=== PATIENT | female | born 1970 | race Caucasian/White ===

== ENCOUNTER 2020-11-09 05:47 | Day surgery (SDC) | payer BC, SELFPAY ==
[2020-10-19 16:03] VITALS: BMI 49.2
--- NOTE | 2020-11-08 15:26 | SUR.PREOP ---
Pt was tested for COVID-[address] [facility] in [facility] on 11/03. Pt presented to hospital today and showed this RN a negative COVID result on her phone. Pt did not have access to a printer to print out result. Pt was emailed her result via an encrypted manner which was shown to this RN. Pt did attempt to forward email to this RN's [facility] email however I was unable to open the email to print the negative result. This RN has called the [facility] in [facility] where pt obtained test and was informed by [employer] sales representative at [facility] that their tests are completed by a third democrat and they do not have access to test results therefore would not be able to send results to the hospital.
[2020-11-09] VITALS (8 sets, daily range): BP systolic 025–125; BP diastolic 67–98; PULSE 69–95; RESP 16; TEMP 36.3–36.8; O2SAT 100; BMI 50.0
--- NOTE | 2020-11-09 06:18 | PCM.HP.STD ---
Problem List (1) Screening for intestinal cancer Status: Acute History of Present Illness Date of Admission: 11/09/20 The patient is a 50 year old F who presents for screening colonoscopy today. She presents via open access. She has never had a previous colonoscopy. She denies abdominal pain. No bright red blood per rectum or melena. No unexpected weight loss. No family history of colon cancer. Her previous abdominal surgery included a laparoscopic cholecystectomy Past Medical History Past Medical History (Chronic Problems): Chronic Problems (Last Reviewed 10/19/20 @ 16:[address] Kalin Paredes, DO) Obesity (Chronic) Overactive bladder (Chronic) Chronic shoulder pain (Chronic) GERD (gastroesophageal reflux disease) (Chronic) ADHD (Chronic) Anxiety and depression (Chronic) Medical History: Medical History (Last Reviewed 10/19/20 @ 16:[address] Kalin Paredes, DO) Obesity (Chronic) E66.9 Overactive bladder (Chronic) N32.81 Chronic shoulder pain (Chronic) M25.519, G89.29 GERD (gastroesophageal reflux disease) (Chronic) K21.9 ADHD (Chronic) F90.9 Gallstones (Acute) K80.20 Anxiety and depression (Chronic) F41.9, F32.9 Allergies trazodone Allergy (Severe, Verified 11/03/20 11:32) rash Contrast dye Allergy (Severe, Uncoded 11/03/20 11:32) Rash Home Medications: Ambulatory Orders Medication Instructions Recorded duloxetine 30 mg capsule,delayed 30 mg PO QHS 07/09/20 release duloxetine 60 mg capsule,delayed 60 mg PO QHS 07/09/20 release meloxicam 7.5 mg tablet 7.5 mg PO DAILY 07/09/20 omeprazole 20 mg capsule,delayed 20 mg PO DAILY 07/09/20 release oxybutynin chloride 5 mg tablet 5 mg PO BID 07/09/20 quetiapine 100 mg tablet 100 mg PO BID 07/09/20 dextroamphetamine-amphetamine ER 30 mg PO DAILY #30 cap 10/19/20 30 mg 24hr capsule,extend release Surgical History: Surgical History (Last Reviewed 10/19/20 @ 16:[address] Kalin Paredes, DO) History of bladder repair surgery Z98.890 History of cholecystectomy Z90.49 History of mandibular surgery Z98.890 1991 Smoking Status: Never smoker Review of Systems Constitutional: Denies: Chills, Fever Cardiovascular: Denies: Chest Pain Respiratory: Denies: Shortness of Breath Gastrointestinal: Denies: Abdominal Pain, Hematochezia, Melena Endocrine: Denies: Change in Body Habitus VTE Information - Inpt Only VTE Present on Admission: No - Physical Exam Vitals/I&O's: Body Mass Index (BMI) 49.2 General: Alert, Oriented x3, Cooperative, No apparent distress Oral: Moist Mucosa Neck: Supple Lungs: Clear to auscultation, Normal air movement Cardiovascular: Regular rate, Regular Rhythm Abdomen: Soft, Non Tender Extremities: No Calf Tenderness Psych/Mental Status: Normal Affect Assessment/Plan All Active Problems (Last Reviewed 10/19/20 @ 16:[address] Kalin Paredes, DO) Screening for intestinal cancer (Acute) Gallstones (Acute) I recommended the patient a colonoscopy with possible biopsy or polypectomy is indicated. She presents with her mother today. She is aware of the technique, benefit, risk, alternatives. She has had an opportunity to ask and have questions answered. She presents via open access. She states that she has tolerated a bowel prep well. We will proceed as noted. Derick Cooper M.D., F.A.C.S.
[2020-11-09] MEDS: Lactated Ringers 1,000 ML 100 ML IV (06:27)
--- NOTE | 2020-11-09 07:38 | OP.COLON_ITS ---
Patient Name: Alexandria Motta Procedure Date: 11/09/2020 7:05 AM Date of : 1970 Age: 50 Procedure: Colonoscopy Indications: Screening for colorectal malignant neoplasm Providers: Derick Cooper MD Referring MD: Kalin Paredes Medicines: Midazolam 5 mg IV, Meperidine 150 mg IV Patient Profile: Last Colonoscopy: none. The patient's first colonoscopy is today. Complications: No immediate complications. Procedure: Pre-Anesthesia Assessment: - Prior to the procedure, a History and Physical was performed, and patient medications and allergies were reviewed. The patient's tolerance of previous anesthesia was also reviewed. The risks and benefits of the procedure and the sedation options and risks were discussed with the patient. All questions were answered, and informed consent was obtained. Prior Anticoagulants: The patient has taken no previous anticoagulant or antiplatelet agents. ASA Grade Assessment: II - A patient with mild systemic disease. After reviewing the risks and benefits, the patient was deemed in satisfactory condition to undergo the procedure. After I obtained informed consent, the scope was passed under direct vision. Throughout the procedure, the patient's blood pressure, pulse, and oxygen saturations were monitored continuously. The colonoscope was introduced through the anus and advanced to the cecum, identified by appendiceal orifice and ileocecal valve. The colonoscopy was performed without difficulty. The ileocecal valve and the appendiceal orifice were photographed. Moderate Sedation: Moderate (conscious) sedation was administered by the endoscopy nurse and supervised by the endoscopist. The following parameters were monitored: oxygen saturation, heart rate, blood pressure, and response to care. Total physician intraservice time was 20 minutes. Scope In: 7:15:35 AM Scope Withdrawal Time 0 hours 6 minutes 42 seconds Scope Out: 7:32:50 AM Total Procedure Duration Time 0 hours 17 minutes 15 seconds Findings: Hemorrhoids were found on perianal exam. The colon (entire examined portion) was significantly tortuous. The exam was otherwise without abnormality. Impression: - Hemorrhoids found on perianal exam. - Tortuous colon. - The examination was otherwise normal. - No specimens collected. Recommendation: - Discharge patient to home. - Resume previous diet. - Continue present medications. - Repeat colonoscopy in 10 years for screening purposes. Procedure Code(s): --- Professional --- 15821, Colonoscopy, flexible; diagnostic, including collection of specimen(s) by brushing or washing, when performed (separate procedure) 14234, 59, Moderate sedation services provided by the same physician or other qualified health customer care manager performing the diagnostic or therapeutic service that the sedation supports, requiring the presence of an independent trained observer to assist in the monitoring of the patient's level of consciousness and physiological status; initial 15 minutes of intraservice time, patient age 5 years or older Diagnosis Code(s): --- Professional --- Z12.11, Encounter for screening for malignant neoplasm of colon K64.9, Unspecified hemorrhoids Q43.8, Other specified congenital malformations of intestine CPT copyright 2017 [employer]. All rights reserved. The codes documented in this report are preliminary and upon last trimmer review may be revised to meet current compliance requirements. Derick Cooper MD 11/09/2020 7:37:37 AM This report has been signed electronically. Number of Addenda: 0 Note Initiated On: 11/09/2020 7:05 AM
--- NOTE | 2020-11-09 07:38 | OP.CCLET_ITS ---
11/09/2020 Kalin Paredes Re : Colonoscopy procedure for Alexandria Motta Dear Dr. Paredes This procedure was performed on Monday, November 09, 2020. My impressions and recommendations are as follows: Impressions : - Hemorrhoids found on perianal exam. - Tortuous colon. - The examination was otherwise normal. - No specimens collected. Recommendations : - Discharge patient to home. - Resume previous diet. - Continue present medications. - Repeat colonoscopy in 10 years for screening purposes. My findings are described in the full procedure note, which is enclosed. If I can be of further assistance, please feel free to contact me at Doctor phone number(s): Work: . Sincerely, Derick Cooper MD 11/09/2020 7:37:37 AM This report has been signed electronically.
== END 2020-11-09 08:10 | disposition home or self-care (01) ==
LOC: EN 05:48 → AC 05:50
PROVIDERS: PCP Family Medicine; Referring Provider Family Medicine; Visit Provider Surgery
PROC: 0DJD8ZZ Inspection of Lower Intestinal Tract, Via Natural or Artificial Opening Endoscopic (ICD-10-PCS; CPT 45378; principal; 2020-11-09 06:55)
DX: Z12.11 Encounter for screening for malignant neoplasm of colon (principal); E66.9 Obesity, unspecified; K21.9 Gastro-esophageal reflux disease without esophagitis; N32.81 Overactive bladder; G89.29 Other chronic pain; F32.9 Major depressive disorder, single episode, unspecified; F41.9 Anxiety disorder, unspecified; F90.9 Attention-deficit hyperactivity disorder, unspecified type; Z79.899 Other long term (current) drug therapy; Z68.42 Body mass index [BMI] 45.0-49.9, adult; K64.9 Unspecified hemorrhoids; Q43.8 Other specified congenital malformations of intestine
CPT/HCPCS: 45378; 99152; 99153; J7120

== ENCOUNTER → 2021-07-28 09:26 | Outpatient (CLI) | payer BC, SELFPAY ==
[2021-07-28 12:27] LABS: Absolute Lymphocyte Count 1.38 X10^3/uL (0.83-4.51); Absolute Neutrophil Count 2.7 X10^3/uL (2.0-7.7); Basophil# 0.04 X10^3/uL; Basophil% 0.9 % (0-1); Eosinophil# 0.12 X10^3/uL; Eosinophils% 2.6 % (0-5); Hematocrit 38.5 % (37-47); Lymphocyte # 1.38 X10^3/ul (0.83-4.51); Mean Corp Hgb Conc 33.8 g/dL (32-36); Mean Corpuscular Hgb 30.7 pg (27.0-32.0); Mean Platelet Vol. 11.6 fl (6.2-12.0); Monocyte# 0.37 X10^3/uL; NRBC Flagged by Analyzer 0 % (0-5); Neutrophil # 2.69 X10^3/uL (2.7-7.7); Neutrophil % 58.5 % (47-70); Platelet Count 271 K/mm3 (150-450); RBC Distribution Width CV 14.4 % (11.6-14.6); RBC Distribution Width SD 48.2 fl (35.1-43.9); Red Blood Count 4.23 M/mm3 (4.2-5.4); White Blood Count 4.6 K/mm3 (4.4-11.0)
[2021-07-28 12:49] LABS: ALB/GLOB Ratio 0.8 RATIO (0.9-2.4); AST(SGOT) 23 U/L (15-37); Alanine Aminotransfer ALT/SGPT 25 U/L (13-56); Albumin, Serum 3.4 g/dL (3.2-5.0); Alkaline Phosphatase 83 U/L (45-117); Anion Gap 7 (5-15); BUN 13 mg/dL (7-18); BUN/Creat Ratio 21.4 RATIO (10-20); Calcium,Total 9.1 mg/dL (8.5-10.1); Chloride 108 mmol/L (98-107); Creatinine, Serum 0.61 mg/dL (0.55-1.02); EST Glomerular Filtration Rate 110 mL/min (>60); Est Glom Filt Rate - Afr Amer 133 mL/min (>60); Globulin 4.1 g/dL (2.2-4.2); Glucose 95 mg/dL (74-106); Potassium 4.6 mmol/L (3.5-5.1); Protein, Total 7.5 g/dL (6.4-8.2); Sodium Level 140 mmol/L (136-145)
== END ==
PROVIDERS: PCP Family Medicine; Referring Provider Family Medicine; Visit Provider Family Medicine
DX: R53.83 Other fatigue (principal); F90.8 Attention-deficit hyperactivity disorder, other type; E66.9 Obesity, unspecified
CPT/HCPCS: 36415; 80053; 84443; 85025

== ENCOUNTER → 2022-10-18 | Outpatient (CLI) | payer BC, SELFPAY ==
[2022-10-18 12:43] LABS: ALB/GLOB Ratio 1.1 RATIO (0.9-2.4); AST(SGOT) 15 U/L (15-37); Alanine Aminotransfer ALT/SGPT 19 U/L (13-56); Albumin, Serum 3.7 g/dL (3.2-5.0); Alkaline Phosphatase 70 U/L (45-117); Anion Gap 6 (5-15); BUN 13 mg/dL (7-18); BUN/Creat Ratio 19.2 RATIO (10-20); Calcium,Total 9.1 mg/dL (8.5-10.1); Chloride 108 mmol/L (98-107); Creatinine, Serum 0.68 mg/dL (0.55-1.02); EST Glomerular Filtration Rate 97 mL/min (>60); Est Glom Filt Rate - Afr Amer 117 mL/min (>60); Globulin 3.4 g/dL (2.2-4.2); Glucose 98 mg/dL (74-106); Protein, Total 7.1 g/dL (6.4-8.2); Sodium Level 141 mmol/L (136-145)
[2022-10-19 19:39] LABS: LDL, Direct 120295 134 mg/dL (0-99)
== END | disposition home or self-care (01) ==
LOC: BIMLAB 09:25
PROVIDERS: PCP Family Medicine; Referring Provider Family Medicine; Visit Provider Family Medicine
DX: Z00.00 Encounter for general adult medical examination without abnormal findings (principal); F90.8 Attention-deficit hyperactivity disorder, other type; E66.9 Obesity, unspecified
CPT/HCPCS: 36415; 80053; 83721; 84443

== ENCOUNTER → 2023-05-30 | Outpatient (CLI) | payer BC, SELFPAY ==
--- NOTE | 2023-05-30 16:27 | CT_ITS ---
EXAM: CT HEAD WITHOUT INTRAVENOUS CONTRAST CLINICAL INDICATION: optic nerve SWELLING TECHNIQUE: Multiple axial images were obtained of the head without intravenous contrast. This CT exam was performed using one or more of the following dose reduction techniques: automated exposure control, adjustment of the mA and/or kV according to patient size, and/or use of iterative reconstruction technique. COMPARISON: No relevant prior studies available. FINDINGS: BRAIN AND EXTRA-AXIAL SPACES: No significant abnormality. No intra- or extra-axial hemorrhage. No evidence of acute infarct. No intracranial mass or mass effect. There is preservation of the modi/white matter interface. Ventricles are appropriate for age. Basal cisterns are patent. BONES/JOINTS: Bilateral TMJ arthrosis. No discrete lytic or blastic abnormalities. SINUSES: No significant findings. MASTOID AIR CELLS: No significant effusion. ORBITS: No acute findings. SELLA: Partially empty sella turcica. CT/Brain/Head without Contrast IMPRESSION: Partially empty sella turcica. This may be a subtle sign of elevated intracranial pressure. Recommend MRI of the brain and orbits for further evaluation. No additional acute findings. Electronically Signed: Gilberto Antoine DO at 22:19 EDT ,
== END | disposition home or self-care (01) ==
PROVIDERS: PCP Family Medicine; Visit Provider Internal Medicine Critical Care Medicine
DX: H47.099 Other disorders of optic nerve, not elsewhere classified, unspecified eye (principal)
CPT/HCPCS: 70450

== ENCOUNTER → 2023-10-24 | Outpatient (CLI) | payer BC, SELFPAY ==
[2023-10-24 17:00] LABS: Absolute Lymphocyte Count 2.44 X10^3/uL (0.83-4.51); Absolute Neutrophil Count 3.4 X10^3/uL (2.0-7.7); Basophil# 0.04 X10^3/uL; Basophil% 0.6 % (0-1); Eosinophil# 0.11 X10^3/uL; Eosinophils% 1.7 % (0-5); Hematocrit 38.7 % (37-47); Hemoglobin 12.6 g/dL (12.0-15.0); Lymphocyte # 2.44 X10^3/ul (0.83-4.51); Lymphocyte % 38.3 % (19-41); Mean Corp Hgb Conc 32.6 g/dL (32-36); Mean Corpuscular Hgb 30.2 pg (27.0-32.0); Mean Corpuscular Volume 92.8 fL (81-99); Monocyte# 0.38 X10^3/uL; NRBC Flagged by Analyzer 0 % (0-5); Neutrophil # 3.39 X10^3/uL (2.7-7.7); Neutrophil % 53.2 % (47-70); Platelet Count 281 K/mm3 (150-450); RBC Distribution Width CV 13.2 % (11.6-14.6); RBC Distribution Width SD 45.3 fl (35.1-43.9); Red Blood Count 4.17 M/mm3 (4.2-5.4); White Blood Count 6.4 K/mm3 (4.4-11.0)
[2023-10-24 17:24] LABS: ALB/GLOB Ratio 1.1 RATIO (0.9-2.4); AST(SGOT) 13 U/L (15-37); Alanine Aminotransfer ALT/SGPT 26 U/L (13-56); Albumin, Serum 3.8 g/dL (3.2-5.0); Alkaline Phosphatase 70 U/L (45-117); Anion Gap 3 (5-15); BUN 19 mg/dL (7-18); BUN/Creat Ratio 34.1 RATIO (10-20); Calcium,Total 8.9 mg/dL (8.5-10.1); Chloride 109 mmol/L (98-107); Creatinine, Serum 0.56 mg/dL (0.55-1.02); EST Glomerular Filtration Rate 121 mL/min (>60); Est Glom Filt Rate - Afr Amer 146 mL/min (>60); Globulin 3.5 g/dL (2.2-4.2); Glucose 84 mg/dL (74-106); Potassium 3.7 mmol/L (3.5-5.1); Protein, Total 7.3 g/dL (6.4-8.2); Sodium Level 139 mmol/L (136-145); Thyroid Stim Hormone (TSH) 2.47 uIU/mL (0.358-3.74)
== END | disposition home or self-care (01) ==
LOC: BIMLAB 15:55
PROVIDERS: PCP Family Medicine; Visit Provider Family Medicine
DX: F41.9 Anxiety disorder, unspecified (principal); F32.9 Major depressive disorder, single episode, unspecified; F90.8 Attention-deficit hyperactivity disorder, other type; R53.83 Other fatigue
CPT/HCPCS: 36415; 80053; 84443; 85025

== ENCOUNTER → 2025-02-17 | Outpatient (CLI) | payer BC, SELFPAY ==
[2025-02-17 12:53] LABS: ALB/GLOB Ratio 1.4 RATIO (0.9-2.4); AST(SGOT) 20 U/L (<=31); Alanine Aminotransfer ALT/SGPT 13 U/L (<=34); Alkaline Phosphatase 79 U/L (35-104); Anion Gap 9 (5-15); BUN 16 mg/dL (4-19); BUN/Creat Ratio 26.4 RATIO (10-20); Calcium,Total 9.3 mg/dL (7.6-11.0); Carbon Dioxide 25.1 mmol/L (21.0-32.0); Chloride 107 mmol/L (98-108); Cholesterol 211 mg/dL (<=200); EST Glomerular Filtration Rate 106 (>60); Globulin 2.8 g/dL (2.2-4.2); Glucose 107 mg/dL (70-99); High Density Lipoprotein 56 mg/dL; Low Density Lipoprotein Calc. 131 mg/dL; Potassium 4.5 mmol/L (3.3-5.1); Protein, Total 6.8 g/dL (5.9-8.4); Sodium Level 141 mmol/L (133-145); Total Bilirubin 0.23 mg/dL (0.00-1.30); Triglycerides 124 mg/dL; Very Low Density Lipoprotein 25 mg/dL (5-40); cholesterol:hdl ratio screen 3.79
--- OUTSIDE RECORDS SUMMARY | 2025-02-17 22:29 | XMS RPT_ITS | CCD ---
Author Organization [facility] CliniSyar Care Team Providers Care Cash Grain Farmer Name Role Phone Rosaura BustosJorge Unavailable Unavailable Gina Paredes Unavailable Unavailable Dr. Gina Paredes Primary Care Provider [phone] Dr. Gina Paredes Attending Provider [phone] Gina Paredes Referring Provider Dr. Gina Paredes Primary Care Provider Dr. Gina Paredes Attending Provider [phone] Gina Paredes Referring Provider [phone] Gina Paredes Primary Care Provider [phone] Dr. Gina Paredes Attending Provider [phone] Gina Paredes Referring Provider [phone] Gina Paredes DO Primary Care Provider SELF Referring Unavailable BROWN, GINA R Primary Care Unavailable BDUDY DOWNS Attending Unavailable Brown, Gina R Primary Care Unavailable Brown, Gina R Attending Unavailable Brown, Gina R Referring Unavailable Brown, Gina R Primary Care Unavailable Brown, Gina R Attending Unavailable Brown, Gina R Referring Unavailable Brown, Gina R Primary Care Unavailable Brown, Gina R Attending Unavailable Brown, Gina R Referring Unavailable Brown, Gina R Primary Care Unavailable Jerome Sanchez Attending Unavailable Brown, Gina R Referring Unavailable Brown, Gina R Primary Care Unavailable Brown, Gina R Attending Unavailable Brown, Gina R Referring Unavailable Brown, Gina R Primary Care Unavailable Reyna Michel Attending Unava ilable Reyna Michel Attending Unava ilable Reggie, Gina R Primary Care Unavailable Dr. Gina Paredes DO Primary Care Provider Dr. Gina Paredes DO Attending Provider Dr. Gina Paredes DO Referring Provider Reyna Michel MA Attending Provider Unavailable Allergies Allergy Classification Reported Allergen(s) Allergy Type Date of Onset Reaction(s) Facility (1 source) Contrast media Allergy to substance 3 [facility] (6 sources) traZODone; Translations: [TRAZODONE] Drug Allergy 3 [facility] (3 sources) Triiodobenzoic Acids Allergy to substance 3 [facility] (2 sources) Iodine; Translations: [IODINE] Drug Allergy 5 [facility] (1 source) traZODone Drug Allergy 5 [facility] (1 source) Iodinated Contrast Media Drug allergy (disorder) 5 [facility] Medications Current Medications Medication Drug Class(es) Dates Sig (Normalized) Sig (Original) doxycycline monohydrate 100 mg oral capsule (1 source) Tetracycline-class Drug Start: 11-16-2024 End: 11-26-2024 take 1 capsule by mouth twice daily doxycycline monohydrate (MONODOX) 100 mg capsule Indications: Atypical pneumonia Take 1 capsule by mouth two times a day for 10 days. 20 capsule 11/16/2024 11/26/2024 Active QUEtiapine 100 mg oral tablet (20 sources) Atypical Antipsychotic Start: 01-13-2025 take 1 tablet by mouth twice daily in the morning, then take 2 tablets by mouth once daily at bedtime Quetiapine 100 mg tablet Active 0 PO TWICE A DAY 270 January 13, 2025 12:16pm 1 tab PO in AM and 2 tabs PO QHS Start: 11-11-2024 End: 01-13-2025 take 1 tablet by mouth twice daily Quetiapine 200 mg tablet Discontinued 0 PO TWICE A DAY 180 November 11, 2024 5:36pm January 13, 2025 1:32pm One tablet twice a day Start: 11-11-2024 take 1 tablet by vicente th every twelve hours QUEtiapine (SEROQUEL) 200 mg tablet Take 1 tablet by mouth every 12 hours. 11/11/2024 Active Start: 07-09-2020 End: 11-11-2024 take 1 tablet by mouth twice daily in the morning, then take 2 tablets by mouth once daily at bedtime Quetiapine 100 mg tablet Discontinued 0 PO TWICE A DAY September 24, 2024 9:36am November 11, 2024 5:38pm 1 tab PO in AM and 2 tabs PO QHS rimegepant 75 mg disintegrating oral tablet (2 sources) Start: 04-30-2024 End: 06-05-2024 take 1 tablet by mouth once daily as needed for headache Rimegepant (Nurtec Odt) 75 mg tablet,disintegrating Active 75 mg PO .QD as needed for migraine headache June 05, 2024 1:54pm Completed/Discontinued Medications Medication Drug Class(es) Dates Sig (Normalized) Sig (Original) 24 hr amphetamine aspartate 7.5 mg / amphetamine sulfate 7.5 mg / dextroamphetamine saccharate 7.5 mg / dextroamphetamine sulfate 7.5 mg extended release oral capsule (20 sources) Central Nervous System Stimulant Start: 01-27-2025 End: 01-27-2025 take 1 capsule by mouth once daily, then take 1 capsule by mouth every twenty-four hours Dextroamphetamine- Amphetamine (Adderall Xr) 30 mg capsule,extended release 24hr Discontinued 30 mg PO DAILY January 27, 2025 February 25, 2025 12:00am January 27, 2025 10:00am Start: 12-30-2024 End: 01-27-2025 take 1 capsule by mouth once daily, then take 1 capsule by mouth every twenty-four hours Dextroamphetamine-Amphetamine (Adderall Xr) 30 mg capsule,extended release 24hr Active 30 mg PO DAILY January 27, 2025 February 25, 2025 12:00am Start: 10-28-2024 End: 12-25-2024 take 1 capsule by mouth once daily, then take 1 capsule by mouth every twenty-four hours Dextroamphetamine-Amphetamine (Adderall Xr) 30 mg capsule,extended release 24hr Discontinued 30 mg PO DAILY November 25, 2024 December 24, 2024 12:00am December 25, 2024 12:07am Start: 09-24-2024 End: 10-24-2024 Dextroamphetamine-Amphetamin e 30 mg capsule,extended release 24hr Discontinued 1 NMA PO daily September 24, 2024 October 23, 2024 1:00am October 24, 2024 1:11am Start: 08-19-2024 End: 09-18-2024 take 1 capsule by mouth once daily, then take 1 capsule by mouth every twenty-four hours Dextroamphetamine-Amphetamine (Adderall Xr) 30 mg capsule,extended release 24hr Discontinued 30 mg PO DAILY August 19, 2024 September 17, 2024 1:00am September 18, 2024 1:11am Start: 07-22-2024 End: 07-22-2024 take 1 capsule by mouth once daily, then take 1 capsule by mouth every twenty-four hours Dextroamphetamine-Amphetamine (Adderall Xr) 30 mg capsule,extended release 24hr Discontinued 30 mg PO DAILY July 22, 2024 August 20, 2024 1:00am July 22, 2024 12:02pm Start: 07-22-2024 End: 08-19-2024 take 1 capsule by mouth once daily, then take 1 capsule by mouth every twenty-four hours Dextroamphetamine-Amphetamine (Adderall Xr) 30 mg capsule,extended release 24hr Discontinued 30 mg PO DAILY July 22, 2024 August 20, 2024 1:00am August 19, 2024 1:34pm Start: 06-16-2024 End: 07-16-2024 take 1 capsule by mouth once daily, then take 1 capsule by mouth every twenty-four hours Dextroamphetamine-Amphetamine (Adderall Xr) 30 mg capsule,extended release 24hr Discontinued 30 mg PO DAILY June 16, 2024 July 15, 2024 1:00am July 16, 2024 1:08am Start: 03-11-2024 End: 06-06-2024 take 1 capsule by mouth once daily, then take 1 capsule by mouth every twenty-four hours Dextroamphetamine-Amphetamine (Adderall Xr) 30 mg capsule,extended release 24hr Discontinued 30 mg PO DAILY May 07, 2024 June 05, 2024 12:00am June 06, 2024 12:07am Start: 10-09-2023 End: 03-06-2024 take 1 capsule by mouth once daily, then take 1 capsule by mouth every twenty-four hours Dextroamphetamine-Amphetamine (Adderall Xr) 30 mg capsule,extended release 24hr Discontinued 30 mg PO DAILY 30 February 05, 2024 March 05, 2024 12:00am March 06, 2024 12:04am Start: 09-04-2023 End: 10-04-2023 take 1 capsule by mouth once daily, then take 1 capsule by mouth every twenty-four hours Dextroamphetamine-Amphetamine (Adderall Xr) 30 mg capsule,extended release 24hr Discontinued 30 mg PO DAILY September 04, 2023 October 03, 2023 1:00am October 04, 2023 1:05am Start: 05-30-2023 End: 08-24-2023 take 1 capsule by mouth once daily, then take 1 capsule by mouth every twenty-four hours Dextroamphetamine-Amphetamine (Adderall Xr) 30 mg capsule,extended release 24hr Discontinued 30 mg PO DAILY June 27, 2023 July 26, 2023 1:00am July 25, 2023 5:21pm Start: 03-26-2023 End: 05-27-2023 take 1 capsule by mouth once daily, then take 1 capsule by mouth every twenty-four hours Dextroamphetamine-Amphetamine (Adderall Xr) 30 mg capsule,extended release 24hr Discontinued 30 mg PO DAILY April 27, 2023 May 26, 2023 12:00am May 27, 2023 12:04am Start: 01-24-2023 End: 03-25-2023 take 1 capsule by mouth once daily, then take 1 capsule by mouth every twenty-four hours Dextroamphetamine-Amphetamine (Adderall Xr) 30 mg capsule,extended release 24hr Discontinued 30 mg PO DAILY 30 February 23, 2023 March 24, 2023 12:00am March 25, 2023 12:04am Start: 11-21-2022 End: 01-20-2023 take 1 capsule by mouth once daily, then take 1 capsule by mouth every twenty-four hours Dextroamphetamine-Amphetamine (Adderall Xr) 30 mg capsule,extended release 24hr Discontinued 30 mg PO DAILY 30 December 21, 2022 January 19, 2023 12:00am January 20, 2023 12:13am Start: 09-19-2022 End: 10-19-2022 take 1 capsule by mouth twice daily, then take 1 capsule by mouth every twenty-four hours Dextroamphetamine-Amphetamine (Adderall Xr) 15 mg capsule,extended release 24hr Discontinued 15 mg PO TWICE A DAY 60 September 19, 2022 October 18, 2022 1:00am October 19, 2022 1:05am Start: 06-26-2022 End: 09-21-2022 take 1 capsule by mouth once daily, then take 1 capsule by mouth every twenty-four hours Dextroamphetamine-Amphetamine (Adderall Xr) 30 mg capsule,extended release 24hr Discontinued 30 mg PO DAILY 30 August 22, 2022 September 20, 2022 1:00am September 21, 2022 1:05am On Hold: Unavailable Start: 05-18-2022 End: 06-17-2022 take 1 capsule by mouth once daily, then take 1 capsule by mouth every twenty-four hours Dextroamphetamine-Amphetamine (Adderall Xr) 30 mg capsule,extended release 24hr Discontinued 30 mg PO DAILY 30 May 18, 2022 June 16, 2022 12:00am June 17, 2022 12:08am Start: 04-17-2022 End: 05-17-2022 take 1 capsule by mouth once daily, then take 1 capsule by mouth every twenty-four hours Dextroamphetamine-Amphetamine (Adderall Xr) 30 mg capsule,extended release 24hr Discontinued 30 mg PO DAILY 30 April 17, 2022 May 16, 2022 12:00am May 17, 2022 12:03am Start: 03-10-2022 End: 04-13-2022 take 1 capsule by mouth once daily, then take 1 capsule by mouth every twenty-four hours Dextroamphetamine-Amphetamine (Adderall Xr) 30 mg capsule,extended release 24hr Discontinued 30 mg PO DAILY 30 March 14, 2022 April 12, 2022 12:00am April 13, 2022 12:04am Start: 01-04-2022 End: 02-24-2022 take 1 capsule by mouth once daily, then take 1 capsule by mouth every twenty-four hours Dextroamphetamine-Amphetamine (Adderall Xr) 30 mg capsule,extended release 24hr Discontinued 30 mg PO DAILY 30 January 25, 2022 February 23, 2022 12:00am February 24, 2022 12:04am Start: 11-30-2021 End: 12-30-2021 take 1 capsule by mouth once daily, then take 1 capsule by mouth every twenty-four hours Dextroamphetamine-Amphetamine (Adderall Xr) 30 mg capsule,extended release 24hr Discontinued 30 mg PO DAILY November 30, 2021 December 29, 2021 12:00am December 30, 2021 12:03am Start: 09-28-2021 End: 11-25-2021 take 1 capsule by mouth once daily, then take 1 capsule by mouth every twenty-four hours Dextroamphetamine-Amphetamine (Adderall Xr) 30 mg capsule,extended release 24hr Discontinued 30 mg PO DAILY October 26, 2021 November 24, 2021 12:00am November 25, 2021 12:03am Start: 08-24-2021 End: 09-23-2021 take 1 capsule by mouth once daily, then take 1 capsule by mouth every twenty-four hours Dextroamphetamine-Amphetamine (Adderall Xr) 30 mg capsule,extended release 24hr Discontinued 30 mg PO DAILY August 24, 2021 September 22, 2021 1:00am September 23, 2021 1:01am Start: 07-19-2021 End: 08-18-2021 take 1 capsule by mouth once daily, then take 1 capsule by mouth every twenty-four hours Dextroamphetamine-Amphetamine (Adderall Xr) 30 mg capsule,extended release 24hr Discontinued 30 mg PO DAILY July 19, 2021 August 17, 2021 1:00am August 18, 2021 1:01am Start: 04-13-2021 End: 07-08-2021 take 1 capsule by mouth once daily, then take 1 capsule by mouth every twenty-four hours Dextroamphetamine-Amphetamine (Adderall Xr) 30 mg capsule,extended release 24hr Discontinued 30 mg PO DAILY June 08, 2021 July 07, 2021 12:00am July 08, 2021 12:01am Start: 03-10-2021 End: 04-09-2021 take 1 capsule by mouth once daily Dextroamphetamine-Amphetamine 30 mg capsule,extended release 24hr Discontinued 30 mg PO DAILY March 10, 2021 April 08, 2021 12:00am March 10, 2021 3:30pm Start: 07-09-2020 End: 03-03-2021 take 1 capsule by mouth once daily, then take 1 capsule by mouth every twenty-four hours Dextroamphetamine-Amphetamine (Adderall Xr) 30 mg capsule,extended release 24hr Discontinued 30 mg PO DAILY February 01, 2021 March 02, 2021 12:00am March 03, 2021 12:01am DULoxetine 60 mg delayed release oral capsule (20 sources) Serotonin and Norepinephrine Reuptake Inhibitor Start: 07-09-2020 End: 07-10-2024 take 1 capsule by mouth at bedtime Duloxetine 30 mg capsule,delayed release(DR/EC) Discontinued 30 mg PO AT BEDTIME September 13, 2021 5:39pm October 26, 2021 4:41pm Start: 07-09-2020 End: 07-10-2024 take 1 capsule by mouth at bedtime Duloxetine 60 mg capsule,delayed release(DR/EC) Discontinued 60 mg PO AT BEDTIME September 13, 2021 5:40pm October 26, 2021 4:41pm meloxicam 7.5 mg oral tablet (20 sources) Nonsteroidal Anti-inflammatory Drug Start: 07-09-2020 End: 07-03-2024 take 1 tablet by mouth once daily Meloxicam 7.5 mg tablet Discontinued 7.5 mg PO DAILY October 10, 2021 1:34pm October 26, 2021 4:41pm omeprazole 20 mg delayed release oral capsule (20 sources) Proton Pump Inhibitor Start: 07-09-2020 End: 07-10-2024 take 1 capsule by mouth once daily Omeprazole 20 mg capsule,delayed release(DR/EC) Discontinued 20 mg PO DAILY July 13, 2022 9:26am January 17, 2023 3:13pm oxybutynin chloride 5 mg oral tablet (20 sources) Cholinergic Muscarinic Antagonist Start: 07-09-2020 End: 01-23-2024 take 1 tablet by mouth twice daily Oxybutynin Chloride 5 mg tablet Discontinued 5 mg PO TWICE A DAY December 09, 2020 12:18pm October 26, 2021 4:41pm Problems Active Problems Problem Classification Problem Date Documented Da te Episodic/Chronic Anxiety disorders (8 sources) Mixed anxiety and depressive disorder; Translations: [Anxiety disorder, unspecified] Onset: 4 11-09-2020 Chronic Attention-deficit, conduct, and disruptive behavior disorders (6 sources) Adult attention deficit hyperactivity disorder ; Translations: [Attention-deficit hyperactivity disorder, other type] 01-20-2021 Chronic Attention-deficit, conduct, and disruptive behavior disorders (4 sources) Attention deficit hyperactivity disorder; Translations: [Attention-deficit hyperactivity disorder, unspecified type] 11-09-2020 Chronic Attention-deficit, conduct, and disruptive behavior disorders (6 sources) Attention-deficit hyperactivity disorder, other type; Translations: [Attention deficit disorder with hyperactivity] Onset: 4 07-19-2022 Chronic Biliary tract disease (4 sources) Gallstone; Translations: [Calculus of gallbladder without cholecystitis without obstruction] 11-09-2020 Episodic Esophageal disorders (6 sources) Gastroesophageal reflux disease; Translations: [Gastro-esophageal reflux disease without esophagitis] Onset: 4 04-20-2021 Chronic Comment on above: Pt. has reccurence o f symptoms when she stops the medications. Headache; including migraine (3 sources) Headache; Translations: [Persistent headaches] 07-25-2023 Episodic Malaise and fatigue (5 sources) Fatigue; Translations: [Other fatigue] 07-28-2021 Episodic Mood disorders (1 source) Major depressive disorder, single episode, unspecified; Translations: [Major depressive disorder, single episode, unspecified] Onset: 4 Chronic Other aftercare (4 sources) Surgical follow-up; Translations: [Encounter for removal of sutures] 07-19-2022 Episodic Other aftercare (1 source) Encounter for removal of sutures; Translations: [Encounter for removal of sutures] 07-19-2022 Episodic Other diseases of bladder and urethra (5 sources) Overactive bladder; Translations: [Overactive bladder] 11-09-2020 Chronic Other ear and sense organ disorders (4 sources) Hearing loss; Translations: [Unspecified hearing loss, unspecified ear] 10-18-2022 Chronic Other ear and sense organ disorders (1 source) Unspecified hearing loss, unspecified ear; Translations: [Unspecified hearing loss] 10-18-2022 Chronic Other eye disorders (3 sources) Compression of optic nerve; Translations: [Other disorders of optic nerve, not elsewhere classified, unspecified eye] 05-10-2023 Chronic Other eye disorders (1 source) Other disorders of optic nerve, not elsewhere classified, unspecified eye; Translations: [Other disorders of optic nerve] 05-10-2023 Chronic Other gastrointestinal disorders (2 sources) Slow transit constipation; Translations: [Slow transit constipation] 07-25-2023 Episodic Other gastrointestinal disorders (1 source) Slow transit constipation; Translations: [Slow transit constipation] 07-25-2023 Episodic Other non-traumatic joint disorders (4 sources) Shoulder pain; Translations: [Pain in unspecified shoulder] 11-09-2020 Episodic Other nutritional; endocrine; and metabolic disorders (4 sources) Obesity; Translations: [Obesity, unspecified] 10-18-2022 Chronic Other nutritional; endocrine; and metabolic disorders (1 source) Obesity, unspecified; Translations: [Obesity, unspecified] 10-18-2022 Chronic Other screening for suspected conditions (not mental disorders or infectious disease) (4 sources) Patient encounter status; Translations: [Encounter for screening for malignant neoplasm of intestinal tract, unspecified] 11-09-2020 Episodic Pneumonia (except that caused by tuberculosis or sexually transmitted disease) (2 sources) Atypical pneumonia; Translations: [Pneumonia, unspecified organism] Onset: 5 11-16-2024 Episodic Unclassified (1 source) Unknown / UNK(Unknown) Onset: 8 Past or Other Problems Problem Classification Problem Date Documented Da te Episodic/Chronic Unclassified (1 source) URGE INCONTINENCE, BATTERY AND LEAD FAILURE Onset: 10-18-2017 Results Test Name Value Interpretation Reference Range Facility [facility] 11-16-2024 CNOV Office Visit ([facility] ) KEZIA MOTTA ([id number]) 1970 F Date Time Provider Department 11/16/24 10:50 AM BUDDY DOWNS During your visit today, we recorded the following information about you: Temperature Pulse Respiration Blood pressure 97.4 degrees 110/minute 20/minute 119/79 Weight 119.7 kg Buddy Downs MD 11/16/2024 11:24 AM Signed Follow-up with PCP Increase fluid intake, rest Steam inhalation plus physiotherapy Autoinsufflation ED if worse Buddy Downs MD 11/16/2024 12:15 PM Signed [facility] Subjective Kezia Motta is a 54 year old female. Patient presents with: Eye Problem: Eyes drainage, mucus in throat both x 6 days Patient with both flu shot and COVID shot this season. Non-smoker; Also complained of ear plugging as if she is under the water. The history is provided by the patient. Eye Problem This is a new problem. The current episode started in the past 7 days. The problem has been gradually worsening. Associated symptoms include chills, coughing, a fever and a sore throat. Pertinent negatives include no nausea or neck pain. Treatments tried: Mucinex DM. The treatment provided no relief. Review of Systems Constitutional: Positive for chills and fever. HENT: Positive for sore throat. Respiratory: Positive for cough. Gastrointestinal: Negative for nausea. Musculoskeletal: Negative for neck pain. Objective BP 119/79 Pulse 110 Temp 36.3 ?C (97.4 ?F) Resp 20 Wt 119.7 kg (264 lb) SpO2 96% Physical Exam Constitutional: Appearance: Normal appearance. HENT: Head: Normocephalic and atraumatic. Nose: Nose normal. Mouth/Throat: Mouth: Mucous membranes are moist. Pharynx: No oropharyngeal exudate or posterior oropharyngeal erythema. Cardiovascular: Rate and Rhythm: Normal rate and regular rhythm. Pulmonary: Effort: Pulmonary effort is normal. Breath sounds: Rhonchi (Left upper to mid lung field) present. Neurological: Mental Status: She is alert. ASSESSMENT/PLAN: 1. Atypical pneumonia - ICD9: 486, ICD10: J18.9 Follow-up with PCP Increase fluid intake, rest Steam inhalation plus physiotherapy Auto-insufflation for eustachian tube dysfunction ED if worse - DOXYCYCLINE MONOHYDRATE 100 MG CAPSULE Buddy Downs MD Differential Diagnoses - atypical pneumonia is more likely for the following reason(s): suggested by HANDP Disposition The patient was discharged. Procedures Referring Provider: SELF [[id number]] Allergies As of Date: 11/16/2024 Noted Allergy Reaction CONTRAST DYE (IODINE) 11/16/2024 2 - Rash TRAZODONE 11/16/2024 2 - Rash Date Reviewed: 11/16/2024 Reviewed by: Buddy Downs MD - Fully Assessed Reason for Visit: Eye Problem [43] Cmt: Eyes drainage, mucus in throat both x 6 days Primary Visit Diagnosis:Atypical pneumonia [J18.9] Order(s):doxycycline monohydrate (MONODOX) 100 mg capsuleTake 1 capsule by mouth two times a day for 10 days.Disp: 20 capsuleRfl: 0 Prescriptions as of 11/16/2024 - QUEtiapine (SEROQUEL) 200 mg tablet Take 1 tablet by mouth every 12 hours. - oxybutynin (DITROPAN) 5 mg tablet Take 5 mg by mouth two times a day. - meloxicam (MOBIC) 7.5 mg tablet Take 7.5 mg by mouth once daily. - DULoxetine (CYMBALTA) 60 mg capsule Take 60 mg by mouth daily at bedtime. - DULoxetine (CYMBALTA) 30 mg capsule Take 30 mg by mouth daily at bedtime. - amphetamine-dextroamphe tamine XR (ADDERALL XR) 30 mg capsule Take 1 capsule by mouth once daily. - doxycycline monohydrate (MONODOX) 100 mg capsule Take 1 capsule by mouth two times a day for 10 days. Problem List As Of Date: 11/16/2024 (None) Other instructions from your clinician: Follow-up with PCP Increase fluid intake, rest Steam inhalation plus physiotherapy Autoinsufflation ED if worse Prescriptions ordered this encounter Disp Refills Start End DOXYCYCLINE MONOHYDRATE 100 MG CAPSU* 20 c* 0 11/16/2024 11/26/2024 Route: ORAL Sig: Take 1 capsule by mouth two times a day for 10 days. Level of Service: OFFICE/OUTPATIENT ESTABLISHED LOW MDM 20 MIN [32525] Letter Text Encounter Status:Closed by BUDDY DOWNS on 11/16/24 [facility] Internal Medicine Office Vis florin 11-11-2024 Internal Medicine Office Visit [facility] [address] [place] [address] [address] [place] [address] OFFICE VISIT Date of Service: 11/11/24 MR#: [id number] Acct: [id number] Name: KEZIA MOTTA Rep #: [id number] : 1970 Provider: Dr. Gina carranza, DO Age/Sex: 54/F Location: [facility] Status: Signed Intake Vital Signs 08/12/24 16:19 09/24/24 07:48 11/11/24 16:15 Height 5 ft 4 in 5 ft 4 in 5 ft 4 in Weight: 259 lb 262 lb BMI 44.4 44.9 BP 138/68 H 130/82 H Blood Pressure Location Lt brachial Lt brachial Position Sitting Sitting Respiration 16 18 Pulse 80 86 Pulse Source Monitor Monitor Temp 97.9 F 97.3 F L Temp Source Temporal Temporal Pulse Oximetry (%) 98 98 Oxygen Delivery Method room air room air Intake Visit Reasons: 3 M FU Servicer Required: No Is patient in pain?: No Allergies Iodinated Contrast Media Allergy (Severe, Verified 11/11/24 16:06) Rash trazodone Allergy (Severe, Verified 11/11/24 16:06) rash Medications ???Medication ???Instructions ???Recorded ???Confirmed ???Type oxybutynin chloride 5 mg tablet 5 mg PO BID #180 tabs 01/23/2401/02 Rx rimegepant 75 mg disintegrating 75 mg PO .QD PRN migraine headache 06/05/24 11/11/24 Rx tablet (Nurtec ODT) #14 tabs meloxicam 7.5 mg tablet 7.5 mg PO DAILY #90 TABLETS 11/11/24 Rx duloxetine 30 mg capsule,delayed 30 mg PO QHS #90 caps 07/10/2401/02 Rx release duloxetine 60 mg capsule,delayed 60 mg PO QHS #90 caps 07/10/2401/02 Rx release omeprazole 20 mg capsule,delayed 20 mg PO DAILY #90 caps 07/10/24 0 11/11/24 Rx release dextroamphetamine-amphe tamine ER 30 mg PO DAILY 30 days #30 caps 11/11/24 Rx 30 mg 24hr capsule,extend release (Adderall XR) quetiapine 200 mg tablet See Rx Instructions PO BID #180 11/11/24 Rx tabs PFSH Medical History Obesity Overactive bladder Chronic shoulder pain GERD (gastroesophageal reflux disease) ADHD Gallstones Anxiety and depression Surgical History History of bladder repair surgery History of mandibular surgery History of cholecystectomy Family History Other Alcoholism Breast cancer Diabetes Social History adopted: No household members: significant other current occupational status: employed current occupation: [employer] pets and animals: No sexually active: No Smoking Status: Never smoker alcohol intake: current alcohol intake frequency: holidays/special occasions only substance use type: does not use caffeine: Yes (6-10) Type: carbonated beverages what type of physical activity do you participate in: none do you feel safe at home: Yes HPI HPI Details: KEZIA MOTTA, is a 54 F who presents to the office today for a follow up appt. She is doing better splitting the dose of Seroquel. She still however does not feel back to normal and has problems with disturbing thoughts. Her weight is down slightly, and she and her boyfriend seems to have reconciled some of the differences ROS Const Constitutional: No body ache, chills, excessive sweating, fatigue, fever(s), frequent falls, headache(s), snoring, weakness, sleep problems or change in appetite Eyes Eyes: No blurry vision, change in vision, eye pain or Light sensitivity ENT ENT: No abnormal hearing, ear or mastoid pain, tinnitus, nasal congestion, headache(s), neck pain or sore throat Resp Respiratory: No cough, shortness of breath, snoring or wheezing Cardio Cardiology: No chest pain at rest, chest pain with exertion, excessive sweating, shortness of breath, dyspnea on exertion, lightheadedness, orthopnea or palpitations Gastro GI: No abdominal pain, change in bowel habits, constipation, cramping, diarrhea, nausea/dyspepsia or vomiting Genitourinary-Female: No burning urination, painful urination, urinary incontinence, urinary frequency, abnormal vaginal bleeding or pelvic pain Musc Musculoskeletal: No abnormal gait, joint pain, back pain, limited range of motion, neck pain or numbness Skin Skin: No dry skin, redness, lesions, itchy eyes, rash or wounds Neuro Neurology: No abnormal gait, abnormal hearing, weakness, frequent falls, headache(s), memory loss or numbness Psych Psychiatric: No anxiety, No change in appetite, No depression, No memory loss and No Thoughts of harming yourself/Others Endo Endocrine: No cold intolerance, excessive sweating, fatigue, flushing, heat intolerance, increased thirst/drinking or increased hunger Aller/Imm Allergy/Immunologic: No itchy eyes, seasonal allergy symptoms, hive (more content not included)... Normal [facility] Internal Medicine Office Vis iton 09-24-2024 Internal Medicine Office Visit [facility] [address] [place] [address] [place] [address] OFFICE VISIT Date of Service: 09/24/24 MR#: [id number] Acct: [id number] Name: KEZIA MOTTA Rep #: [id number] : 1970 Provider: JENNIFER Lewis Age/Sex: 54/F Location: [facility] Status: Signed Intake Vital Signs 08/12/24 16:19 09/24/24 07:48 Height 5 ft 4 in 5 ft 4 in Weight: 259 lb 264 lb BMI 44.4 45.3 BP 138/68 H 128/82 H Blood Pressure Location Lt brachial Lt brachial Position Sitting Sitting Respiration 16 16 Pulse 80 74 Pulse Source Monitor Monitor Temp 97.9 F 98.1 F Temp Source Temporal Temporal Pulse Oximetry (%) 98 98 Oxygen Delivery Method room air room air Intake Visit Reasons: acute - intrusive thoughts Chief Complaint: intrusive thoughts Servicer Required: No Accompanied by: Mother Is patient in pain?: No Allergies Iodinated Contrast Media Allergy (Severe, Verified 09/24/24 07:44) Rash trazodone Allergy (Severe, Verified 09/24/24 07:44) rash Medications ???Medication ???Instructions ???Recorded ???Confirmed ???Type oxybutynin chloride 5 mg tablet 5 mg PO BID #180 tabs 01/23/24 09/24/24 Rx rimegepant 75 mg disintegrating 75 mg PO .QD PRN migraine headache 06/05/24 09/24/24 Rx tablet (Nurtec ODT) #14 tabs meloxicam 7.5 mg tablet 7.5 mg PO DAILY #90 TABLETS 07/03/24 09/24/24 Rx duloxetine 30 mg capsule,delayed 30 mg PO QHS #90 caps 07/10/24 09/24/24 Rx release duloxetine 60 mg capsule,delayed 60 mg PO QHS #90 caps 07/10/24 09/24/24 Rx release omeprazole 20 mg capsule,delayed 20 mg PO DAILY #90 caps 07/10/24 09/24/24 Rx release dextroamphetamine-amphe tamine ER 1 cap PO QDAY 30 days #30 caps 09/24/24 09/24/24 Rx 30 mg 24hr capsule,extend release quetiapine 100 mg tablet See Rx Instructions PO BID #90 tabs 09/24/24 09/24/24 Rx PFSH Medical History (Updated 09/24/24 @ 09:04 by JENNIFER Schuster) Obesity Overactive bladder Chronic shoulder pain GERD (gastroesophageal reflux disease) ADHD Gallstones Anxiety and depression Surgical History History of bladder repair surgery History of mandibular surgery History of cholecystectomy Family History Other Alcoholism Breast cancer Diabetes Social History adopted: No household members: significant other current occupational status: employed current occupation: [employer] pets and animals: No sexually active: No Smoking Status: Never smoker alcohol intake: current alcohol intake frequency: holidays/special occasions only substance use type: does not use caffeine: Yes (6-10) Type: carbonated beverages what type of physical activity do you participate in: none do you feel safe at home: Yes Questionnaire SJ-7 SJ-7 Feeling nervous, anxious, or on edge: 3 = Nearly every day Not being able to stop or control worryin = Nearly every day Worrying too much about different things: 3 = Nearly every day Trouble relaxin = More than half the days Being so restless that it is hard to sit still: 2 = More than half the days Becoming easily annoyed or irritable: 3 = Nearly every day Feeling afraid as if something awful might happen: 0 = Not at all Total SJ-7 score (0-4 normal; 5-9 mild; 10-14 moderate; 15-21 severe): 16 Source: Developed by Drs. Derick Franco, Lashon Reyes, Armaan Yee and colleagues, with an educational keven from [employer]. HPI HPI Chief Complaint: intrusive thoughts Details: KEZIA MOTTA, is a 54 F who presents to the office today for Some intrusive thoughts. She states that she feels like she is reacting more recently. She feels like she is much more irritable often arguing more or becoming angry with her boyfriend. She states that she has been noticing this more the past month. After physical exam and further discussion, she then states that about a month ago her boyfriend who she lives with told her that he didn't think that getting was something that he wanted today. ROS Const Constitutional: No body ache, chills, excessive sweating, fatigue, fever(s), frequent falls, headache(s), snoring, weakness or change in appetite Eyes Eyes: No blurry vision, change in vision, eye pain or Light sensitivity ENT ENT: No abnormal hearing, ear or mastoid pain, tinnitus, nasal congestion, headache(s), neck pain or sore throat Resp Respiratory: No cough, shortness of breath, snoring or wheezing Cardio Cardiology: No chest pain at rest, chest pain with exertion, excessive sweating, dyspnea on exertion, lightheadedness, orthopnea or palpitations Gastro GI: No abdominal pain, change in bowel habits, constipation, cramping, diarrhea, sharan (more content not included)... Normal [facility] Internal Medicine Office Vis florin 08-12-2024 Internal Medicine Office Visit [facility] [place] [address] [place] [address] OFFICE VISIT Date of Service: 08/12/24 MR#: [id number] Acct: [id number] Name: KEZIA MOTTA Rep #: [id number] : 1970 Provider: Dr. Gina Marshall own, DO Age/Sex: 54/F Location: [facility] Status: Signed Intake Vital Signs 04/30/24 08:34 08/12/24 16:19 Height 5 ft 4 in 5 ft 4 in Weight: 257 lb 259 lb BMI 44.1 44.4 BP 112/68 138/68 H Blood Pressure Location Lt brachial Lt brachial Position Sitting Sitting Respiration 14 16 Pulse 73 80 Pulse Source Monitor Monitor Temp 97.6 F L 97.9 F Temp Source Temporal Temporal Pulse Oximetry (%) 96 98 Oxygen Delivery Method room air room air Intake Visit Reasons: 3 M FU Chief Complaint: check up Servicer Required: No Accompanied by: Self Is patient in pain?: No Allergies Iodinated Contrast Media Allergy (Severe, Verified 08/12/24 16:17) Rash trazodone Allergy (Severe, Verified 08/12/24 16:17) rash Medications ???Medication ???Instructions ???Recorded ???Confirmed ???Type oxybutynin chloride 5 mg tablet 5 mg PO BID #180 tabs 01/23/24 08/12/24 Rx rimegepant 75 mg disintegrating 75 mg PO .QD PRN migraine headache 06/05/24 08/12/24 Rx tablet (Nurtec ODT) #14 tabs meloxicam 7.5 mg tablet 7.5 mg PO DAILY #90 TABLETS 07/03/24 08/12/24 Rx duloxetine 30 mg capsule,delayed 30 mg PO QHS #90 caps 07/10/24 08/12/24 Rx release duloxetine 60 mg capsule,delayed 60 mg PO QHS #90 caps 07/10/24 08/12/24 Rx release omeprazole 20 mg capsule,delayed 20 mg PO DAILY #90 caps 07/10/24 08/12/24 Rx release quetiapine 100 mg tablet 100 mg PO BID #180 tabs 07/10/24 08/12/24 Rx dextroamphetamine-amphe tamine ER 30 mg PO DAILY 30 days #30 caps 07/22/24 08/12/24 Rx 30 mg 24hr capsule,extend release (Adderall XR) PFSH Medical History Obesity Overactive bladder Chronic shoulder pain GERD (gastroesophageal reflux disease) ADHD Gallstones Anxiety and depression Surgical History History of bladder repair surgery History of mandibular surgery History of cholecystectomy Family History Other Alcoholism Breast cancer Diabetes Social History adopted: No household members: significant other current occupational status: employed current occupation: [employer] pets and animals: No sexually active: No Smoking Status: Never smoker alcohol intake: current alcohol intake frequency: holidays/special occasions only substance use type: does not use caffeine: Yes (6-10) Type: carbonated beverages what type of physical activity do you participate in: none do you feel safe at home: Yes HPI HPI Chief Complaint: check up Details: KEZIA MOTTA, is a 54 F who presents to the office today for a brief checkup and refill on her medications. She has gained a little weight, but she is drinking an excessive amount of sugared soda. She is still employed and doing well at her job. She lives with her boyfriend and there is been no change with their relationship. She really has no complaints. ROS Const Constitutional: No body ache, chills, excessive sweating, fatigue, fever(s), frequent falls, headache(s), snoring, weakness or change in appetite Eyes Eyes: No blurry vision, change in vision, eye pain or Light sensitivity ENT ENT: No abnormal hearing, ear or mastoid pain, tinnitus, nasal congestion, headache(s), neck pain or sore throat Resp Respiratory: No cough, shortness of breath, snoring or wheezing Cardio Cardiology: No chest pain at rest, chest pain with exertion, excessive sweating, dyspnea on exertion, lightheadedness, orthopnea or palpitations Gastro GI: No abdominal pain, change in bowel habits, constipation, cramping, diarrhea, nausea/dyspepsia or vomiting Genitourinary-Female: No burning urination, painful urination, urinary incontinence or urinary frequency Musc Musculoskeletal: No abnormal gait, joint pain, back pain, limited range of motion, muscle weakness, neck pain or numbness Skin Skin: No dry skin, redness, lesions, itchy eyes, rash or wounds Neuro Neurology: No abnormal gait, abnormal hearing, weakness, frequent falls, headache(s), memory loss or numbness Psych Psychiatric: No anxiety, No change in appetite, No depression, No memory loss and No Thoughts of harming yourself/Others Endo Endocrine: No cold intolerance, excessive sweating, fatigue, flushing, heat intolerance, increased thirst/drinking or increased hunger Aller/Imm Allergy/Immunologic: No itchy eyes, seasonal allergy symptoms, hives or wheezing Vasiliy/Lymp Hematologic/Lymphatic: No easy bleedi (more content not included)... Normal [facility] Internal Medicine Office Vis iton 04-30-2024 Internal Medicine Office Visit [facility] [address] [place], [place] [address] OFFICE VISIT Date of Service: 04/30/24 MR#: [id number] Acct: [id number] Name: KEZIA MOTTA Rep #: [id number] : 1970 Provider: Dr. Gina Marshall own, DO Age/Sex: 54/F Location: [facility] Status: Signed Intake Vital Signs 01/23/24 15:35 04/30/24 08:34 Height 5 ft 4 in 5 ft 4 in Weight: 244 lb 257 lb BMI 41.8 44.1 BP 120/68 112/68 Blood Pressure Location Lt brachial Lt brachial Position Sitting Sitting Respiration 16 14 Pulse 101 H 73 Pulse Source Monitor Monitor Temp 97.0 F L 97.6 F L Temp Source Temporal Temporal Pulse Oximetry (%) 98 96 Oxygen Delivery Method room air room air Intake Visit Reasons: YEARLY Chief Complaint: check up Servicer Required: No Is patient in pain?: No Allergies Iodinated Contrast Media Allergy (Severe, Verified 04/30/24 08:30) Rash trazodone Allergy (Severe, Verified 04/30/24 08:30) rash Medications ???Medication ???Instructions ???Recorded ???Confirmed ???Type duloxetine 30 mg capsule,delayed 30 mg PO QHS #90 caps 01/23/24 04/30/24 Rx release duloxetine 60 mg capsule,delayed 60 mg PO QHS #90 caps 01/23/24 04/30/24 Rx release meloxicam 7.5 mg tablet 7.5 mg PO DAILY #90 tabs 01/23/24 04/30/24 Rx omeprazole 20 mg capsule,delayed 20 mg PO DAILY #90 caps 01/23/24 04/30/24 Rx release oxybutynin chloride 5 mg tablet 5 mg PO BID #180 tabs 01/23/24 04/30/24 Rx quetiapine 100 mg tablet 100 mg PO BID #180 tabs 01/23/24 04/30/24 Rx dextroamphetamine-amphe tamine ER 30 mg PO DAILY 30 days #30 caps 04/08/24 04/30/24 Rx 30 mg 24hr capsule,extend release (Adderall XR) rimegepant 75 mg disintegrating 75 mg PO 04/30/24 04/30/24 History tablet (Nurtec ODT) [facility] Medical History Obesity Overactive bladder Chronic shoulder pain GERD (gastroesophageal reflux disease) ADHD Gallstones Anxiety and depression Surgical History History of bladder repair surgery History of mandibular surgery History of cholecystectomy Family History Other Alcoholism Breast cancer Diabetes Social History (Updated 04/30/24 @ 08:34 by Reyna Michel MA) adopted: No household members: significant other current occupational status: employed current occupation: [employer] pets and animals: No sexually active: No Smoking Status: Never smoker alcohol intake: current alcohol intake frequency: holidays/special occasions only substance use type: does not use caffeine: Yes (6-10) Type: carbonated beverages what type of physical activity do you participate in: none do you feel safe at home: Yes HPI HPI Chief Complaint: check up Details: KEZIA MOTTA, is a 54 F who presents to the office today for a routine checkup. She is in a relationship and is sexually active and has been having routine gynecologic exams done as well as mammograms ordered. She continues to be employed. Her colonoscopy was 3 years ago. Immunizations are up-to-date. She has been struggling trying to take care of her father but they seem to be reconciling a broken relationship. ROS Const Constitutional: No body ache, chills, excessive sweating, fatigue, fever(s), frequent falls, headache(s), snoring, weakness, sleep problems or change in appetite Eyes Eyes: No blurry vision, change in vision, eye pain or Light sensitivity ENT ENT: No abnormal hearing, ear or mastoid pain, tinnitus, nasal congestion, headache(s), neck pain or sore throat Resp Respiratory: No cough, shortness of breath, snoring or wheezing Cardio Cardiology: No chest pain at rest, chest pain with exertion, excessive sweating, shortness of breath, dyspnea on exertion, lightheadedness, orthopnea or palpitations Gastro GI: No abdominal pain, change in bowel habits, constipation, cramping, diarrhea, nausea/dyspepsia or vomiting Genitourinary-Female: No burning urination, painful urination, urinary incontinence, urinary frequency, abnormal vaginal bleeding or pelvic pain Musc Musculoskeletal: No abnormal gait, joint pain, back pain, limited range of motion, neck pain or numbness Skin Skin: No dry skin, redness, lesions, itchy eyes, rash or wounds Neuro Neurology: No abnormal gait, abnormal hearing, weakness, frequent falls, headache(s), memory loss or numbness Psych Psychiatric: No anxiety, No change in appetite, No depression, No memory loss and No Thoughts of harming yourself/Others Endo Endocrine: No cold intolerance, excessive sweating, fatigue, flushing, heat intolerance, increased thirst/drinking or increased hunger Aller/Imm Allergy/Immunologi (more content not included)... Normal [facility] Internal Medicine Office Vis florin 01-23-2024 Internal Medicine Office Visit [facility] [address] [place] [address] [place] [address] OFFICE VISIT Date of Service: 01/23/24 MR#: [id number] Acct: [id number] Name: KEZIA MOTTA Rep #: [id number] : 1970 Provider: Dr. Gina carranza, DO Age/Sex: 53/F Location: [facility] Status: Signed Intake Vital Signs 10/24/23 15:30 01/23/24 15:35 Height 5 ft 4 in 5 ft 4 in Weight: 242 lb 4 oz 244 lb BMI 41.5 41.8 BP 118/72 120/68 Blood Pressure Location Lt brachial Lt brachial Position Sitting Sitting Respiration 16 16 Pulse 77 101 H Pulse Source Monitor Monitor Temp 97.9 F 97.0 F L Temp Source Temporal Temporal Pulse Oximetry (%) 96 98 Oxygen Delivery Method room air room air Intake Visit Reasons: 3 M FU Chief Complaint: check up Servicer Required: No Accompanied by: Self Is patient in pain?: No Allergies Iodinated Contrast Media Allergy (Severe, Verified 01/23/24 15:34) Rash trazodone Allergy (Severe, Verified 01/23/24 15:34) rash Medications ???Medication ???Instructions ???Recorded ???Confirmed ???Type dextroamphetamine-amphe tamine ER 30 mg PO DAILY 30 days #30 caps 01/09/24 01/23/24 Rx 30 mg 24hr capsule,extend release (Adderall XR) duloxetine 30 mg capsule,delayed 30 mg PO QHS #90 caps 01/23/24 01/23/24 Rx release duloxetine 60 mg capsule,delayed 60 mg PO QHS #90 caps 01/23/24 01/23/24 Rx release meloxicam 7.5 mg tablet 7.5 mg PO DAILY #90 tabs 01/23/24 01/23/24 Rx omeprazole 20 mg capsule,delayed 20 mg PO DAILY #90 caps 01/23/24 01/23/24 Rx release oxybutynin chloride 5 mg tablet 5 mg PO BID #180 tabs 01/23/24 01/23/24 Rx quetiapine 100 mg tablet 100 mg PO BID #180 tabs 01/23/24 01/23/24 Rx Nurse's Note: having migraines once a week every other week occurring for years these ,migraines last around a full day. has attempted OTC Excedrin and sumatriptan with no success, finds nurtec works the best but cost is an issues attempting PA. [facility] Medical History Obesity Overactive bladder Chronic shoulder pain GERD (gastroesophageal reflux disease) ADHD Gallstones Anxiety and depression Surgical History History of bladder repair surgery History of mandibular surgery History of cholecystectomy Family History Other Alcoholism Breast cancer Diabetes Social History Smoking Status: Never smoker alcohol intake: current alcohol intake frequency: holidays/special occasions only substance use type: does not use what type of physical activity do you participate in: none HPI HPI Chief Complaint: check up Details: KEZIA MOTTA, is a 53 F who presents to the office today for a routine follow-up exam so she can continue taking her medications for her adult ADD. Exam Const General: cooperative and healthy appearing Nutritional Appearance: overweight HENMT Ears: TM's normal bilaterally, EAC's normal and hearing grossly impaired (Hearing loss noticed on Audioscope exam) Face and sinus: normal facial exam Eyes General: appearance normal, both eyes and all related structures Neck Neck: normal visual inspection Neck mass: No Thyroid: thyroid normal Resp Effort Inspection: normal respiratory effort Auscultation: Bilateral: Clear to Auscultation Cardio Rate: regular rate Rhythm: regular rhythm Musc Musculoskeletal: No joint tenderness Skin General: no rashes or lesions noted Neuro General: patient oriented x3 Cognition: normal cognition Speech: speech normal Gait: normal gait Extrem General: normal to inspection Psych Appearance: grossly normal Mood: congruent mood Affect: normal affect Speech and Movement: speech and movement normal Attitude: cooperative Thought Process: normal Judgment: judgment good Coding Level of Care Code Off vis,est,level 3 Diagnoses ADHD, adult residual type F90.8 GERD (gastroesophageal reflux disease) K21.9 Anxiety and depression F41.9; F32.9 Assessment and Plan Assessment and Plan (1) ADHD, adult residual type: Status: Acute Comment: Pt. is employed and seems to be doing well (2) GERD (gastroesophageal reflux disease): Status: Chronic Comment: Pt. has reccurence of symptoms when she stops the medications. (3) Anxiety and depression: Status: Chronic Plan: Patient is considering a job change as she is a little anxious about that changed but otherwise she is doing well. Medications: Refilled duloxetine 60 mg PO QHS 90 caps 1RF duloxetine 30 mg PO QHS 90 caps 1RF meloxicam 7.5 mg PO DAILY 90 tabs 1RF omeprazole 20 mg PO DAILY 90 caps 1RF oxybutynin chloride 5 mg PO BID 180 tabs 3RF (more content not included)... Normal [facility] Absolute lymphocyte countOrd ered By: Gina Paredes on 10-24-2023 Lymphocytes Auto (Unsp spec) [#/Vol] 2.44 10*3/uL 0.83-4.51 [facility] Automated lymphocyte count a s percentage of total leukocytesOrdered By: Gina Paredes on 10-24-2023 Lymphocytes/100 WBC Auto (Unsp spec) 38.3 % 19-41 [facility] Basophil percentageOrdered B y: Gina Paredes on 10-24-2023 Basophils/100 WBC (Bld) 0.6 % 0-1 [facility] Bilirubin [Mass/Vol] 0.40 mg/dL 0.20-1.00 [facility] Comment on above: For patients on eltr ombopag therapy, use of Dimension [place] TBIL is not recommended. Chloride [Moles/Vol] 109 mmol/L 98-107 [facility] Eosinophils/100 WBC (Bld) 1.7 % 0-5 [facility] Glucose [Mass/Vol] 84 mg/dL 74-106 [facility] Hemoglobin (Bld) [Mass/Vol] 12.6 g/dL 12.0-15.0 [facility] Monocytes/100 WBC (Bld) 6.0 % 0-10 [facility] Neutrophils (Bld) [#/Vol] 3.4 10*3/uL 2.0-7.7 [facility] Neutrophils/100 WBC (Bld) 53.2 % 47-70 [facility] Potassium [Moles/Vol] 3.7 mmol/L 3.5-5.1 [facility] Protein [Mass/Vol] 7.3 g/dL 6.4-8.2 [facility] Sodium [Moles/Vol] 139 mmol/L 136-145 [facility] WBC (Bld) [#/Vol] 6.4 10*3/uL 4.4-11.0 [facility] Determination of erythrocyte mean corpuscular volume (MCV)Ordered By: Gina Paredes on 10-24-2023 MCV (RBC) [Entitic vol] 92.8 fL 81-99 [facility] Erythrocyte distribution wid th ratioOrdered By: Gina Paredes on 10-24-2023 Erythrocyte distribution width (RBC) [Ratio] 13.2 % 11.6-14.6 [facility] Erythrocyte distribution wid th standard deviationOrdered By: Gina Paredes on 10-24-2023 Erythrocyte distribution width (RBC) [Entitic vol] 45.3 fL 35.1-43.9 [facility] Hematocrit Auto (Bld) [Volum e fraction]Ordered By: Gina Paredes on 10-24-2023 Hematocrit (Bld) [Volume fraction] 38.7 % 37-47 [facility] Immature granulocytes/100 WB C Auto (Bld)Ordered By: Gina Paredes on 10-24-2023 Immature granulocytes/100 WBC (Bld) 0.200 % 0.0-0.9 [facility] Comment on above: IG% - Immature Granu locytes (promyelocytes, myelocytes and metamyelocytes) > 1% indicates that a LEFT SHIFT is Present. Laboratory - Chemistry and C hemistry - challengeOrdered By: Gina Paredes on 10-24-2023 Albumin/Globulin [Mass ratio] 1.1 {ratio} 0.9-2.4 [facility] ALP [Catalytic activity/Vol] 70 U/L 45-117 [facility] ALT [Catalytic activity/Vol] 26 U/L 13-56 [facility] CO2 [Moles/Vol] 27.0 mmol/L 21.0-32.0 [facility] Globulin (S) [Mass/Vol] 3.5 g/dL 2.2-4.2 [facility] Urea nitrogen/Creatinine [Mass ratio] 34.1 mg/mg 10-20 [facility] Laboratory - Hematology and Cell countsOrdered By: Gina Paredes on 10-24-2023 MCH (RBC) [Entitic mass] 30.2 pg 27.0-32.0 [facility] MCHC (RBC) [Mass/Vol] 32.6 g/dL 32-36 [facility] Nucleated RBC/100 WBC (Bld) [Ratio] 0 % 0-5 [facility] Platelet mean volume (Bld) [Entitic vol] 11.0 fL 6.2-12.0 [facility] Platelets (Bld) [#/Vol] 281 10*3/uL 150-450 [facility] No Panel InformationOrdered By: Gina Paredes on 10-24-2023 Estimated GFR (MDRD) Amer 146 mL/min >60 [facility] Comment on above: GFR Calc Estimated GFR (MDRD) Non-Af Amer 121 mL/min >60 [facility] Comment on above: Non- GFR Calc RBC Auto (Bld) [#/Vol]Ordere d By: Gina Paredes on 10-24-2023 RBC (Bld) [#/Vol] 4.17 10*6/uL 4.2-5.4 [facility] Serum or plasma calcium romana urement (mass/volume)Ordered By: Gina Paredes on 10-24-2023 Calcium [Mass/Vol] 8.9 mg/dL 8.5-10.1 [facility] Serum or plasma creatinine m easurement (mass/volume)Ordered By: Gina Paredes on 10-24-2023 Creatinine [Mass/Vol] 0.56 mg/dL 0.55-1.02 [facility] Comment on above: The validity of the calculated GFR & GFRAA in patients over 70 years has not been determined. Clinical correlation is essential. Serum or plasma thyroid stim ulating hormone (TSH) measurement (units/volume)Ordered By: Gina Paredes on 10-24-2023 TSH Qn 2.47 uIU/mL 0.358-3.74 [facility] Serum or plasma urea nitroge n measurement (mass/volume)Ordered By: Gina Paredes on 10-24-2023 Urea nitrogen [Mass/Vol] 19 mg/dL 7-18 [facility] Thin prep Papanicolaou smear with manual screeningOrdered By: Gina Paredes on 10-24-2023 Thin prep Papanicolaou smear with manual screening 3.8 g/dL 3.2-5.0 [facility] Thin prep Papanicolaou smear with manual screening 13 U/L 15-37 [facility] Thin prep Papanicolaou smear with manual screening 3 5-15 [facility] Basophil percentageOrdered B y: Dr. Paredes on 10-18-2022 Bilirubin [Mass/Vol] 0.40 mg/dL 0.20-1.00 [facility] Comment on above: For patients on eltr ombopag therapy, use of Dimension [place] TBIL is not recommended. Chloride [Moles/Vol] 108 mmol/L 98-107 [facility] Glucose [Mass/Vol] 98 mg/dL 74-106 [facility] Potassium [Moles/Vol] 4.0 mmol/L 3.5-5.1 [facility] Protein [Mass/Vol] 7.1 g/dL 6.4-8.2 [facility] Sodium [Moles/Vol] 141 mmol/L 136-145 [facility] Cholesterol in LDL Direct as say [Mass/Vol]Ordered By: Dr. Paredes on 10-18-2022 Cholesterol in LDL [Mass/Vol] 134 mg/dL 0-99 [facility] Comment on above: [facility] [place] [id number] Director: Star Coates PhD, Phone: [phone] Laboratory - Chemistry and C hemistry - challengeOrdered By: Dr. Paredes on 10-18-2022 ALP [Catalytic activity/Vol] 70 U/L 45-117 [facility] ALT [Catalytic activity/Vol] 19 U/L 13-56 [facility] CO2 [Moles/Vol] 27.0 mmol/L 21.0-32.0 [facility] Globulin (S) [Mass/Vol] 3.4 g/dL 2.2-4.2 [facility] Urea nitrogen/Creatinine [Mass ratio] 19.2 mg/mg 10-20 [facility] Laboratory - Miscellaneous t estsOrdered By: Dr. Paredes on 10-18-2022 Service comment (Unsp spec) [Interp] TNP [facility] Comment on above: Test not performed No Panel InformationOrdered By: Dr. Paredes on 10-18-2022 Estimated GFR (MDRD) Amer 117 mL/min >60 [facility] Comment on above: GFR Calc Estimated GFR (MDRD) Non-Af Amer 97 mL/min >60 [facility] Comment on above: Non- GFR Calc Thyroid Stimulating Hormone (TSH) 2.20 uIU/mL 0.358-3.74 [facility] Serum or plasma albumin romana urement (mass/volume)Ordered By: Dr. Paredes on 10-18-2022 Albumin [Mass/Vol] 3.7 g/dL 3.2-5.0 [facility] Serum or plasma albumin/glob ulin mass ratioOrdered By: Dr. Paredes on 10-18-2022 Albumin/Globulin [Mass ratio] 1.1 {ratio} 0.9-2.4 [facility] Serum or plasma calcium romana urement (mass/volume)Ordered By: Dr. Paredes on 10-18-2022 Calcium [Mass/Vol] 9.1 mg/dL 8.5-10.1 [facility] Serum or plasma creatinine m easurement (mass/volume)Ordered By: Dr. Paredes on 10-18-2022 Creatinine [Mass/Vol] 0.68 mg/dL 0.55-1.02 [facility] Comment on above: The validity of the calculated GFR & GFRAA in patients over 70 years has not been determined. Clinical correlation is essential. Serum or plasma urea nitroge n measurement (mass/volume)Ordered By: Dr. Paredes on 10-18-2022 Urea nitrogen [Mass/Vol] 13 mg/dL 7-18 [facility] Thin prep Papanicolaou smear with manual screeningOrdered By: Dr. Paredes on 10-18-2022 Thin prep Papanicolaou smear with manual screening 15 U/L 15-37 [facility] Thin prep Papanicolaou smear with manual screening 6 5-15 [facility] LIPIDon 03-18-2020 Cholesterol [Mass/Vol] 235 mg/dL High 50-199 [facility] ([place]) Comment on above: Result Comment: Chol esterol Reference Interval: Less than 200 Desirable 200-239 Borderline high risk 240 and above High risk Performed By: #### C BC, ADIFF, ANEU, TSH, CMP, GFR, LIPID #### [address] [address] Cholesterol in HDL [Mass/Vol] 63 mg/dL High 40-59 [facility] ([place]) Comment on above: Result Comment: HDL Reference Interval: Less than 40 Low - high risk 60 or above Optimal/lowers risk Performed By: #### C BC, ADIFF, ANEU, TSH, CMP, GFR, LIPID #### [facility] [address] [place] [id number] Cholesterol in LDL [Mass/Vol] 150 mg/dL High 0-129 [facility] ([place]) Comment on above: Result Comment: LDL is a calculated result and requires a 12- hr fast. LDL Reference Interval: Less than 100 Optimal 100-129 Near or above optimal 130-159 Borderline high risk 160-189 High risk 190 and above Very high risk Performed By: #### C BC, ADIFF, ANEU, TSH, CMP, GFR, LIPID #### [address] [address] Triglyceride [Mass/Vol] 108 mg/dL Normal 3-149 [facility] ([place]) Comment on above: Result Comment: Trig lyceride Reference Interval: Less than 150 Normal 150-199 Borderline high risk 200-499 High risk 500 or higher Very high risk Performed By: #### C BC, ADIFF, ANEU, TSH, CMP, GFR, LIPID #### [address] [address] .Auto Diffon 03-17-2020 Ammonia (P) [Mass/Vol] 0.30 10 3/mcL Normal 0.09-1.40 [facility] ([place]) Comment on above: Performed By: #### C BC, ADIFF, ANEU, TSH, CMP, GFR, LIPID #### [place] [id number] Basophils (Bld) [#/Vol] 0.10 10 3/mcL Normal 0.00-0.27 [facility] ([place]) Comment on above: Performed By: #### C BC, ADIFF, ANEU, TSH, CMP, GFR, LIPID #### [address] [address] Basophils/100 WBC (Bld) 1.2 % Normal 0.0-2.5 [facility] ([place]) Comment on above: Performed By: #### C BC, ADIFF, ANEU, TSH, CMP, GFR, LIPID #### [address] [address] Eosinophils (Bld) [#/Vol] 0.20 10 3/mcL Normal 0.00-0.65 [facility] ([place]) Comment on above: Performed By: #### C BC, ADIFF, ANEU, TSH, CMP, GFR, LIPID #### [address] [address] Eosinophils/100 WBC (Bld) 3.1 % Normal 0.0-6.0 [facility] ([place]) Comment on above: Performed By: #### C BC, ADIFF, ANEU, TSH, CMP, GFR, LIPID #### [address] [address] Lymphocytes (Bld) [#/Vol] 1.80 10 3/mcL Normal 0.90-4.32 [facility] ([place] Comment on above: Performed By: #### C BC, ADIFF, ANEU, TSH, CMP, GFR, LIPID #### [address] [address] Lymphocytes/100 WBC (Bld) 34.9 % Normal 20.0-40.0 [facility] ([place] Comment on above: Performed By: #### C BC, ADIFF, ANEU, TSH, CMP, GFR, LIPID #### [address] [address] Monocytes/100 WBC (Bld) 6.5 % Normal 2.0-13.0 [facility] ([place]) Comment on above: Performed By: #### C BC, ADIFF, ANEU, TSH, CMP, GFR, LIPID #### [address] [address] Neutrophils/100 WBC (Bld) 54.3 % Normal 50.0-75.0 [facility] ([place] Comment on above: Performed By: #### C BC, ADIFF, ANEU, TSH, CMP, GFR, LIPID #### [address] [address] .GFRon 03-17-2020 GFR >60 Normal [facility] ([place]) Comment on above: Result Comment: GFR Population mean for , Non- Americans Ages 20-29 = 116 mL/min/1.73 sq.m. Ages 30-39 = 107 mL/min/1.73 sq.m. Ages 40-49 = 99 mL/min/1.73 sq.m. Ages 50-59 = 93 mL/min/1.73 sq.m. Ages 60-69 = 85 mL/min/1.73 sq.m. Ages 70+ = 75 mL/min/1.73 sq.m. Chronic Kidney Disease: Less than 60 mL/min/1.73 square meters End Stage Renal Disease: Less than 15 mL/min/1.73 square meters Performed By: #### C BC, ADIFF, ANEU, TSH, CMP, GFR, LIPID #### [address] [address] GFR Non- >60 Normal [facility] ([place] Comment on above: Result Comment: GFR Population mean for , Non- Americans Ages 20-29 = 116 mL/min/1.73 sq.m. Ages 30-39 = 107 mL/min/1.73 sq.m. Ages 40-49 = 99 mL/min/1.73 sq.m. Ages 50-59 = 93 mL/min/1.73 sq.m. Ages 60-69 = 85 mL/min/1.73 sq.m. Ages 70+ = 75 mL/min/1.73 sq.m. Chronic Kidney Disease: Less than 60 mL/min/1.73 square meters End Stage Renal Disease: Less than 15 mL/min/1.73 square meters Performed By: #### C BC, ADIFF, ANEU, TSH, CMP, GFR, LIPID #### [address] [address] .NEUABSon 03-17-2020 Neutrophils (Bld) [#/Vol] 2.90 10 3/mcL Normal 2.25-8.10 [facility] ([place]) Comment on above: Performed By: #### C BC, ADIFF, ANEU, TSH, CMP, GFR, LIPID #### [address] [address] CBCon 03-17-2020 Erythrocyte distribution width (RBC) [Ratio] 15.2 % Normal 11.5-15.5 [facility] ([place] Comment on above: Performed By: #### C BC, ADIFF, ANEU, TSH, CMP, GFR, LIPID #### [address] [address] Hematocrit (Bld) [Volume fraction] 40.3 % Normal 34.0-46.0 [facility] ([place] Comment on above: Performed By: #### C BC, ADIFF, ANEU, TSH, CMP, GFR, LIPID #### [place] [id number] Hemoglobin (Bld) [Mass/Vol] 13.5 G/dL Normal 12.0-16.0 [facility] ([place]) Comment on above: Performed By: #### C BC, ADIFF, ANEU, TSH, CMP, GFR, LIPID #### [place] [id number] MCH (RBC) [Entitic mass] 31.2 pg Normal 27.0-33.0 [facility] ([place]) Comment on above: Performed By: #### C BC, ADIFF, ANEU, TSH, CMP, GFR, LIPID #### [place] [id number] MCHC (RBC) [Mass/Vol] 33.5 G/dL Normal 32.0-36.0 [facility] ([place] Comment on above: Performed By: #### C BC, ADIFF, ANEU, TSH, CMP, GFR, LIPID #### [place] [id number] MCV (RBC) [Entitic vol] 93.0 fL Normal 80.0-99.0 [facility] ([place]) Comment on above: Performed By: #### C BC, ADIFF, ANEU, TSH, CMP, GFR, LIPID #### [place] [id number] Platelet mean volume (Bld) [Entitic vol] 9.0 fL Normal 6.6-10.5 [facility] ([place] Comment on above: Performed By: #### C BC, ADIFF, ANEU, TSH, CMP, GFR, LIPID #### [place] [id number] Platelets (Bld) [#/Vol] 300 10 3/mcL Normal 150-450 [facility] ([place]) Comment on above: Performed By: #### C BC, ADIFF, ANEU, TSH, CMP, GFR, LIPID #### [place] [id number] RBC (Bld) [#/Vol] 4.33 10 6/mcL Normal 4.10-5.30 [facility] ([place]) Comment on above: Performed By: #### C BC, ADIFF, ANEU, TSH, CMP, GFR, LIPID #### [place] [id number] WBC (Bld) [#/Vol] 5.30 10 3/mcL Normal 4.50-10.80 [facility] ([place] Comment on above: Performed By: #### C BC, ADIFF, ANEU, TSH, CMP, GFR, LIPID #### [address] [address] CMPon 03-17-2020 Albumin/Globulin [Mass ratio] 1.0 {ratio} Normal 0.9-1.6 [facility] ([place] Comment on above: Performed By: #### C BC, ADIFF, ANEU, TSH, CMP, GFR, LIPID #### [place] [id number] ALP [Catalytic activity/Vol] 76 U/L Normal 38-126 [facility] ([place] Comment on above: Performed By: #### C BC, ADIFF, ANEU, TSH, CMP, GFR, LIPID #### [place] [id number] Bili Total 0.5 mg/dL Normal 0.2-1.2 [facility] ([place]) Comment on above: Result Comment: Use of this assay is not recommended for patients undergoing treatment with eltrombopag due to the potential for falsely elevated results. Performed By: #### C BC, ADIFF, ANEU, TSH, CMP, GFR, LIPID #### [place] [id number] Creatinine [Mass/Vol] 0.58 mg/dL Normal 0.50-1.20 [facility] ([place] Comment on above: Performed By: #### C BC, ADIFF, ANEU, TSH, CMP, GFR, LIPID #### [place] [id number] Globulin (S) [Mass/Vol] 3.7 G/dL Normal 1.5-3.8 [facility] ([place] Comment on above: Performed By: #### C BC, ADIFF, ANEU, TSH, CMP, GFR, LIPID #### [address] [address] Protein [Mass/Vol] 7.3 G/dL Normal 6.0-8.5 [facility] ([place] Comment on above: Performed By: #### C BC, ADIFF, ANEU, TSH, CMP, GFR, LIPID #### [address] [address] Urea nitrogen/Creatinine [Mass ratio] 24.1 ratio High 10.0-22.0 [facility] ([place] Comment on above: Performed By: #### C BC, ADIFF, ANEU, TSH, CMP, GFR, LIPID #### [address] [address] Albumin [Mass/Vol] 3.6 G/dL Normal 3.2-4.8 [facility] ([place] Comment on above: Performed By: #### C BC, ADIFF, ANEU, TSH, CMP, GFR, LIPID #### [address] [address] ALT [Catalytic activity/Vol] 25 U/L Normal 10-49 [facility] ([place] Comment on above: Performed By: #### C BC, ADIFF, ANEU, TSH, CMP, GFR, LIPID #### [address] [address] AST [Catalytic activity/Vol] 13 U/L Normal 8-34 [facility] ([place] Comment on above: Performed By: #### C BC, ADIFF, ANEU, TSH, CMP, GFR, LIPID #### [address] [address] Calcium [Mass/Vol] 8.7 mg/dL Normal 8.4-10.1 [facility] ([place] Comment on above: Performed By: #### C BC, ADIFF, ANEU, TSH, CMP, GFR, LIPID #### [address] [address] Chloride [Moles/Vol] 110 mmol/L Normal 98-110 [facility] ([place] Comment on above: Performed By: #### C BC, ADIFF, ANEU, TSH, CMP, GFR, LIPID #### [address] [address] CO2 [Moles/Vol] 28 mmol/L Normal 22-32 [facility] ([place] Comment on above: Performed By: #### C BC, ADIFF, ANEU, TSH, CMP, GFR, LIPID #### [address] [address] Electrolyte Balance 4.0 mEq/L Normal 4.0-15.0 [facility] ([place]) Comment on above: Performed By: #### C BC, ADIFF, ANEU, TSH, CMP, GFR, LIPID #### [place] [id number] Glucose [Mass/Vol] 99 mg/dL Normal 70-110 [facility] ([place] Comment on above: Performed By: #### C BC, ADIFF, ANEU, TSH, CMP, GFR, LIPID #### [place] [id number] Potassium [Moles/Vol] 4.5 mmol/L Normal 3.5-5.0 [facility] ([place] Comment on above: Performed By: #### C BC, ADIFF, ANEU, TSH, CMP, GFR, LIPID #### [place] [id number] Sodium [Moles/Vol] 142 mmol/L Normal 136-145 [facility] ([place] Comment on above: Performed By: #### C BC, ADIFF, ANEU, TSH, CMP, GFR, LIPID #### [address] [address] Urea nitrogen [Mass/Vol] 14.0 mg/dL Normal 8.0-22.0 [facility] ([place] Comment on above: Performed By: #### C BC, ADIFF, ANEU, TSH, CMP, GFR, LIPID #### [address] [address] TSHon 03-17-2020 TSH Qn 3.720 mcIU/mL Normal 0.360-3.740 [facility] ([place]) Comment on above: Performed By: #### C BC, ADIFF, ANEU, TSH, CMP, GFR, LIPID #### [address] [address] .GFRon 05-27-2019 GFR Non- 102 ml/min/1.73sqm Normal [facility] ([place] Comment on above: Result Comment: GFR Population mean for , Non- Americans Ages 20-29 = 116 mL/min/1.73 sq.m. Ages 30-39 = 107 mL/min/1.73 sq.m. Ages 40-49 = 99 mL/min/1.73 sq.m. Ages 50-59 = 93 mL/min/1.73 sq.m. Ages 60-69 = 85 mL/min/1.73 sq.m. Ages 70+ = 75 mL/min/1.73 sq.m. Chronic Kidney Disease: Less than 60 mL/min/1.73 square meters End Stage Renal Disease: Less than 15 mL/min/1.73 square meters Performed By: #### L IPID, CMP, GFR #### [address] [address] GFR 124 ml/min/1.73sqm Normal [facility] ([place] Comment on above: Result Comment: GFR Population mean for , Non- Americans Ages 20-29 = 116 mL/min/1.73 sq.m. Ages 30-39 = 107 mL/min/1.73 sq.m. Ages 40-49 = 99 mL/min/1.73 sq.m. Ages 50-59 = 93 mL/min/1.73 sq.m. Ages 60-69 = 85 mL/min/1.73 sq.m. Ages 70+ = 75 mL/min/1.73 sq.m. Chronic Kidney Disease: Less than 60 mL/min/1.73 square meters End Stage Renal Disease: Less than 15 mL/min/1.73 square meters Performed By: #### L IPID, CMP, GFR #### [address] [address] CMPon 05-27-2019 Albumin [Mass/Vol] 3.3 G/dL Low 3.5-5.0 [facility] ([place] Comment on above: Performed By: #### L IPID, CMP, GFR #### [address] [address] Albumin/Globulin [Mass ratio] 1.0 {ratio} Low 1.1-2.5 [facility] ([place]) Comment on above: Performed By: #### L IPID, CMP, GFR #### [address] [address] ALP [Catalytic activity/Vol] 59 U/L Normal 40-135 [facility] ([place] Comment on above: Performed By: #### L IPID, CMP, GFR #### [address] [address] ALT [Catalytic activity/Vol] 19 U/L Normal 10-35 [facility] ([place] Comment on above: Performed By: #### L IPID, CMP, GFR #### [address] [address] AST [Catalytic activity/Vol] 16 U/L Normal 10-40 [facility] ([place] Comment on above: Performed By: #### L IPID, CMP, GFR #### [address] [address] Bili Total 0.3 mg/dL Normal 0.2-1.0 [facility] ([place] Comment on above: Performed By: #### L IPID, CMP, GFR #### [address] [address] Calcium [Mass/Vol] 8.7 mg/dL Normal 8.4-10.2 [facility] ([place] Comment on above: Performed By: #### L IPID, CMP, GFR #### [address] [address] Chloride [Moles/Vol] 107 mmol/L Normal 98-107 [facility] ([place] Comment on above: Performed By: #### L IPID, CMP, GFR #### [address] [address] CO2 [Moles/Vol] 28 mmol/L Normal 22-29 [facility] ([place] Comment on above: Performed By: #### L IPID, CMP, GFR #### [address] [address] Creatinine [Mass/Vol] 0.62 mg/dL Normal 0.55-1.02 [facility] ([place] Comment on above: Performed By: #### L IPID, CMP, GFR #### [address] [address] Electrolyte Balance 6.0 mEq/L Normal [facility] ([place]) Comment on above: Performed By: #### L IPID, CMP, GFR #### [address] [address] Globulin (S) [Mass/Vol] 3.2 G/dL Normal [facility] ([place] Comment on above: Performed By: #### L IPID, CMP, GFR #### [address] [address] Glucose [Mass/Vol] 91 mg/dL Normal 70-105 [facility] ([place] Comment on above: Performed By: #### L IPID, CMP, GFR #### [address] [address] Potassium [Moles/Vol] 4.5 mmol/L Normal 3.5-5.1 [facility] ([place] Comment on above: Performed By: #### L IPID, CMP, GFR #### [address] [address] Protein [Mass/Vol] 6.5 G/dL Normal 6.4-8.2 [facility] ([place] Comment on above: Performed By: #### L IPID, CMP, GFR #### [address] [address] Sodium [Moles/Vol] 141 mmol/L Normal 136-145 [facility] ([place] Comment on above: Performed By: #### L IPID, CMP, GFR #### [address] [address] Urea nitrogen [Mass/Vol] 15 mg/dL Normal 7-18 [facility] ([place] Comment on above: Performed By: #### L IPID, CMP, GFR #### [facility] [address] [place] [address] Urea nitrogen/Creatinine [Mass ratio] 24 ratio Normal 7-27 [facility] ([place] Comment on above: Performed By: #### L IPID, CMP, GFR #### [facility] [address] [place] [address] LIPIDon 05-27-2019 Cholesterol [Mass/Vol] 170 mg/dL Normal 0-200 [facility] ([place]) Comment on above: Result Comment: Chol esterol Reference Interval: Less than 200 Desirable 200-239 Borderline high risk 240 and above High risk Performed By: #### L IPID, CMP, GFR #### [address] [address] Cholesterol in HDL [Mass/Vol] 41 mg/dL Normal 40-60 [facility] ([place] Comment on above: Performed By: #### L IPID, CMP, GFR #### [address] [address] Cholesterol in LDL [Mass/Vol] 112 mg/dL Normal 0-130 [facility] ([place] Comment on above: Performed By: #### L IPID, CMP, GFR #### [address] [address] Triglyceride [Mass/Vol] 84 mg/dL Normal 0-150 [facility] ([place] Comment on above: Result Comment: Trig lyceride Reference Interval: Less than 150 Normal 150-199 Borderline high risk 200-499 High risk 500 or higher Very high risk Performed By: #### L IPID, CMP, GFR #### [address] [address] FLUOROSCOPY IN OR/PAIN MGTon 10-18-2017 FLUOROSCOPY IN OR/PAIN MGT FLUOROSCOPY IN OR/PAIN MGTOrdering Physician: Rosaura Bustos, DO10/18/2017 12:00 PMPELVIC FLUOROSCOPYClinical Statement: IncontinenceFINDINGS: 33 seconds fluoroscopy time was utilized by Dr. Bustos.Three C-arm images of the pelvis were obtained.IMPRESSION:33 seconds fluoroscopy time utilized by Dr. Bustos. ---- Electronic Signature on File ----Signed By: Jordan Benavides MD [email or web address] ictated: 10/18/2017 1:30 PMSigned: 10/18/2017 1:31 PM Reported By: JORDAN BENAVIDES M.D. Signed By: JORDAN BENAVIDES M.D. [facility] Dimple Almanzan 10-18-2017 OPERATIVE REPORT [facility] OR DATE OF SERVICE: 10/18/2017PREOPERATIVE DIAGNOSIS: Urge incontinence. Lead failure and battery failure.POSTOPERATIVE DIAGNOSIS: Urge incontinence. Lead failure and battery failure.OPERATION: Removal of inner stem lead and neuromodulator. Then placement stage Iand stage II inner stem implantation and neuromodulation.SURGEON : VALARIE PerkinsOMPLICATIONS: None.ESTIMATED BLOOD LOSS: 20 mLANESTHESIA: MAC.DETAILS OF THE PROCEDURE: The patient is a 47-year-old white female who presented tothe office for her recheck of her urge incontinence that had been worsening. Whenher lead and battery were evaluated it was found that her lead impedances, all ofthem were greater than 4000 and her battery life was 0. Risks, benefits andalternatives were discussed with the patient. She opted for removal of the currentinner stem product and replacement with a new stage I and stage II system. Shepresented to the operating room where MAC anesthesia was found to be adequate. Shewas injected with 1% lidocaine. The pacemaker pocket was incised. Pacemaker wasremoved. The implantation site of the lead was also injected with 1% lidocaine andthe lead was visualized and removed intact. At that period of time a newimplantation site was injected and brought down through the S3 foramen without anydifficulty. The patient did feel the impulse in the vaginal rectal area. She didhave Ashkan and large toe. The inner sheath of the needle was removed. Guidewirewas placed. A larger incision around the guidewire was cut using a 15-blade scalpel.The trocar was placed over the guidewire. The guidewire was removed and theimplantation lead was placed without any difficulty. All under x-ray visualization.The lead was tunneled to the old pacemaker pocket and the lead was transfixed intothe pacemaker and the pacemaker was dropped into the pacemaker pocket. Impedanceswere checked. The incision was repaired with 2-layered closure with 4-0 Vicryl.Dermabond skin glue was applied and Steri-strips and OpSite was also applied.The patient was taken to the recovery room without any complications. Radhaji Santiago Juli DOMV/[id number]: 10/22/2017 08:16 [facility] PATIENT NAME: KEZIA MOTTA20 Archana Will MEDICAL REC #: [id number] [address] DATE:DISCHARGE DATE:OPERATIVE REPORT ATTENDING PHY: Rosaura Bustos DODT: 10/22/2017 09:05SSI File#: [id number] #: [id number]/Reviewed by10/30/17 1457 NITISH [facility] PATIENT NAME: KEZIA MOTTA M13Shagufta Archana Will MEDICAL REC #: [id number] [address] DATE:DISCHARGE DATE:OPERATIVE REPORT ATTENDING PHY: Rosaura Bustos DO Normal [facility] URINE PREGNANCYon 10-18-2017 UR HCG QUAL Negative Normal NEGATIVE [facility] Comment on above: Order Comment: Lenny santiago: Craig Performed By: #### L [phone] ####[facility] [id number] [place], [place] [address]Tx# [id number] UR SPEC GRAV 1.019 Normal 1.005-1.030 [facility] – [place] Comment on above: Order Comment: Lenny santiago: Craig Performed By: #### L [id number] ####[facility] [id number] [place], [place] [address]Cl# [phone] Vital Signs Date Time Vital Sign Value Performing Clinician Facility 02-17-2025 09:32-0400 Body height 162.[address] Gina Paredes DO Work Phone: [facility] 02-17-2025 09:32-0400 Body mass index (BMI) [Ratio] 44.9 kg/m2 Dr. Gina Paredes DO Work Phone: [facility] 02-17-2025 09:32-0400 Body temperature 97.4 [degF] Dr. Gina Paredes DO Work Phone: [facility] 02-17-2025 09:32-0400 Body weight 118.[address] Gina Paredes DO Work Phone: [facility] 02-17-2025 09:32-0400 Diastolic blood pressure 88 mm[Hg] Dr. Gina Paredes DO Work Phone: [facility] 02-17-2025 09:32-0400 Heart rate 76 /min Dr. Gina Paredes DO Work Phone: [facility] 02-17-2025 09:32-0400 Respiratory rate 16 /min Dr. Gina Paredes DO Work Phone: [facility] 02-17-2025 09:32-0400 SaO2% (BldA) [Mass fraction] 94 % Dr. Gina Paredes DO Work Phone: [facility] 02-17-2025 09:32-0400 Systolic blood pressure 138 mm[Hg] Dr. Gina Paredes DO Work Phone: [facility] 11-16-2024 11:08-0400 Body temperature 97.39 [degF] Buddy Downs MD Work Phone: [facility] 11-16-2024 11:08-0400 Body weight 119.75 kg Buddy Downs MD Work Phone: [facility] 11-16-2024 11:08-0400 Diastolic blood pressure 79 mm[Hg] Buddy Downs MD Work Phone: [facility] 11-16-2024 11:08-0400 Heart rate 110 /min Buddy Downs MD Work Phone: [facility] 11-16-2024 11:08-0400 Respiratory rate 20 /min Buddy Downs MD Work Phone: [facility] 11-16-2024 11:08-0400 SaO2% (BldA) [Mass fraction] 96 % Buddy Downs MD Work Phone: [facility] 11-16-2024 11:08-0400 Systolic blood pressure 119 mm[Hg] Buddy Downs MD Work Phone: [facility] 11-11-2024 16:15-0500 Body mass index (BMI) [Ratio] 44.9 kg/m2 Dr. Gina Paredes DO Work Phone: [facility] 11-11-2024 16:15-0500 Body temperature 97.3 [degF] Dr. Gina Paredes DO Work Phone: [facility] 11-11-2024 16:15-0500 Body weight 118.[address] Gina Paredes DO Work Phone: [facility] 11-11-2024 16:15-0500 Diastolic blood pressure 82 mm[Hg] Dr. Gina Paredes DO Work Phone: [facility] 11-11-2024 16:15-0500 Heart rate 86 /min Dr. Gina Paredes DO Work Phone: [facility] 11-11-2024 16:15-0500 Respiratory rate 18 /min Dr. Gina Paredes DO Work Phone: [facility] 11-11-2024 16:15-0500 SaO2% (BldA) [Mass fraction] 98 % Dr. Gina Paredes DO Work Phone: [facility] 11-11-2024 16:15-0500 Systolic blood pressure 130 mm[Hg] Dr. Gina Paredes DO Work Phone: [facility] 10-24-2023 15:30-0500 Body height 162.[address] Gina Paredes Work Phone: [facility] 10-24-2023 15:30-0500 Body mass index (BMI) [Ratio] 41.5 kg/m2 Dr. Gina Paredes Work Phone: [facility] 10-24-2023 15:30-0500 Body temperature 97.9 [degF] Dr. Gina Paredes Work Phone: [facility] 10-24-2023 15:30-0500 Body weight 109.[address] Gina Paredes Work Phone: [facility] 10-24-2023 15:30-0500 Diastolic blood pressure 72 mm[Hg] Dr. Gina Paredes Work Phone: [facility] 10-24-2023 15:30-0500 Heart rate 77 /min Dr. Gina Paredes Work Phone: [facility] 10-24-2023 15:30-0500 Respiratory rate 16 /min Dr. Gina Paredes Work Phone: [facility] 10-24-2023 15:30-0500 SaO2% (BldA) [Mass fraction] 96 % Dr. Gina Paredes Work Phone: [facility] 10-24-2023 15:30-0500 Systolic blood pressure 118 mm[Hg] Dr. Gina Paredes Work Phone: [facility] 07-25-2023 16:10-0500 Body mass index (BMI) [Ratio] 41 kg/m2 Dr. Gina Paredes Work Phone: [facility] 07-25-2023 16:10-0500 Body temperature 98.8 [degF] Dr. Gina Paredes Work Phone: [facility] 07-25-2023 16:10-0500 Body weight 108.[address] Gina Paredes Work Phone: [facility] 07-25-2023 16:10-0500 Diastolic blood pressure 90 mm[Hg] Dr. Gina Paredes Work Phone: [facility] 07-25-2023 16:10-0500 Heart rate 77 /min Dr. Gina Paredes Work Phone: [facility] 07-25-2023 16:10-0500 Respiratory rate 16 /min Dr. Gina Paredes Work Phone: [facility] 07-25-2023 16:10-0500 SaO2% (BldA) [Mass fraction] 97 % Dr. Gina Paredes Work Phone: [facility] 07-25-2023 16:10-0500 Systolic blood pressure 142 mm[Hg] Dr. Gina Paredes Work Phone: [facility] 05-10-2023 16:02-0400 Body height 162.[address] Gina Paredes Work Phone: [facility] 05-10-2023 16:02-0400 Body mass index (BMI) [Ratio] 42 kg/m2 Dr. Gina Paredes Work Phone: [facility] 05-10-2023 16:02-0400 Body temperature 97.3 [degF] Dr. Gina Paredes Work Phone: [facility] 05-10-2023 16:02-0400 Body weight 111.[address] Gina Paredes Work Phone: [facility] 05-10-2023 16:02-0400 Diastolic blood pressure 84 mm[Hg] Dr. Gina Paredes Work Phone: [facility] 05-10-2023 16:02-0400 Heart rate 81 /min Dr. Gnia Paredes Work Phone: [facility] 05-10-2023 16:02-0400 Respiratory rate 16 /min Dr. Gina Paredes Work Phone: [facility] 05-10-2023 16:02-0400 SaO2% (BldA) [Mass fraction] 96 % Dr. Gina Paredes Work Phone: [facility] 05-10-2023 16:02-0400 Systolic blood pressure 126 mm[Hg] Dr. Gina Paredes Work Phone: [facility] 10-18-2022 08:48-0500 Body height 162.[address] Gina Paredes Work Phone: [facility] 10-18-2022 08:48-0500 Body mass index (BMI) [Ratio] 44.6 kg/m2 Dr. Gina Paredes Work Phone: [facility] 10-18-2022 08:48-0500 Body temperature 98 [degF] Dr. Gina Paredes Work Phone: [facility] 10-18-2022 08:48-0500 Body weight 118.[address] Gina Paredes Work Phone: [facility] 10-18-2022 08:48-0500 Diastolic blood pressure 84 mm[Hg] Dr. Gina Paredes Work Phone: [facility] 10-18-2022 08:48-0500 Heart rate 83 /min Dr. Gina Paredes Work Phone: [facility] 10-18-2022 08:48-0500 Respiratory rate 18 /min Dr. Gina Paredes Work Phone: [facility] 10-18-2022 08:48-0500 SaO2% (BldA) [Mass fraction] 96 % Dr. Gina Paredes Work Phone: [facility] 10-18-2022 08:48-0500 Systolic blood pressure 124 mm[Hg] Dr. Gina Paredes Work Phone: [facility] 07-19-2022 14:17-0500 Body mass index (BMI) [Ratio] 46.3 kg/m2 Dr. Gina Paredes Work Phone: [facility] 07-19-2022 14:17-0500 Body temperature 97.8 [degF] Dr. Gina Paredes Work Phone: [facility] 07-19-2022 14:17-0500 Body weight 122.[address] Gina Paredes Work Phone: [facility] 07-19-2022 14:17-0500 Diastolic blood pressure 84 mm[Hg] Dr. Gina Paredes Work Phone: [facility] 07-19-2022 14:17-0500 Heart rate 80 /min Dr. Gina Paredes Work Phone: [facility] 07-19-2022 14:17-0500 SaO2% (BldA) [Mass fraction] 96 % Dr. Gina Paredes Work Phone: [facility] 07-19-2022 14:17-0500 Systolic blood pressure 132 mm[Hg] Dr. Gina Paredes Work Phone: [facility] Encounters Encounter Date Encounter Type Care Provider Facility Start: 02-17-2025 End: 02-17-[address] Gina Paredes DO Work Phone: [facility] Work Phone: Start: 02-17-2025 End: 02-17-[address] Gina Roberson DO -[facility] Work Phone: Start: 01-13-2025 Non-patient / Non-visit Reyna Michel [place] -[facility] Work Phone: Start: 01-13-2025 ambulatory Reyna Michel Facility:[facility] Start: 01-12-2025 Non-patient / Non-visit Reyna [place] [facility] Work Phone: Start: 01-12-2025 ambulatory Gina Paredes Facilit y:[facility] Start: 11-16-2024 End: 11-16-2024 ambulatory SELF Facility:[id number] Start: 11-16-2024 End: 11-16-2024 Office outpatient visit 15 minutes Buddy Downs MD Work Phone: [facility] Comment on above: Atypical pneumonia ( Primary Dx) Start: 11-11-2024 End: 11-11-[address] Gina Roberson DO -[facility] Work Phone: Start: 11-11-2024 End: 11-11-2024 ambulatory Gina Paredes Facility:[facility] Start: 09-24-2024 End: 09-24-2024 ambulatory Gina Paredes Facility:[facility] Start: 08-12-2024 End: 08-12-2024 ambulatory Gina Paredes Facility:[facility] Start: 04-30-2024 End: 04-30-2024 ambulatory Gina Paredes Facility:[facility] Start: 01-23-2024 End: 01-23-2024 ambulatory Gina Paredes Facility:[facility] Start: 10-24-2023 End: 10-24-[address] Gina Paredes Work Phone: [facility] Work Phone: Start: 10-24-2023 End: 10-24-[address] Gina Paredes Work Phone: [facility] Work Phone: Start: 07-25-2023 End: 07-25-[address] Gina Paredes Work Phone: [facility] Work Phone: Start: 05-30-2023 End: 05-30-[address] Gina Paredes Work Phone: [facility] Work Phone: Start: 05-30-2023 End: 05-30-[address] Gina Paredes Work Phone: [facility] Work Phone: Start: 05-10-2023 End: 05-10-[address] Gina Paredes Work Phone: [facility] Work Phone: Start: 10-18-2022 End: 10-18-[address] Gina Paredes Work Phone: [facility] Work Phone: Start: 10-18-2022 End: 10-18-2022 Encounter for general adult medical examination without abnormal findings Dr. Gina Paredes Work Phone: [facility] Start: 10-18-2022 End: 10-18-[address] Gina Paredes Work Phone: [facility] Start: 07-19-2022 End: 07-19-[address] Gina Paredes Work Phone: [facility] Start: 07-28-[address] Gina Paredes Work Phone: [facility] Start: 07-28-[address] Gina Paredes Work Phone: [facility] Start: 10-18-2017 Evaluation and management of inpatient Rosaura Bustos Facility:[facility] Procedures Date Procedure Procedure Detail Performing Clinician Start: 05-30-2023 CT of head without contrast Dr. Gina Paredes Work Phone: Plan of Treatment Date Care Activity Detail Author Start: 06-16-2024 Urine microalbumin profile DTaP,Tdap,Td Vaccine (2 - Td or Tdap) [facility] Start: 2020 Pneumococcal Vaccine: 50+ (1 of 1 - PCV) Pneumococcal Vaccine: 50+ (1 of 1 - PCV) [facility] Start: 2020 Shingrix Vaccine (1 of 2) Shingrix Vaccine (1 of 2) [facility] Start: 2015 Diabetes Screening Diabetes Screening [facility] Start: 2015 Lipid panel Lipid Screening [facility] Start: 2015 Screening for malignant neoplasm of colon [facility] Start: 2010 Screening for malignant neoplasm of breast Mammogram Screening [facility] Start: 1991 Screening for malignant neoplasm of cervix Cervical Cancer Screening [facility] Start: 1989 Hepatitis B Vaccine (1 of 3 - 19+ 3-dose series) Hepatitis B Vaccine (1 of 3 - 19+ 3-dose series) [facility] Start: 1988 Anxiety Screening Anxiety Screening [facility] Start: 1988 Depression Screening Depression Screening [facility] Start: 1988 Hepatitis C screening Hepatitis C Screening [facility] Start: 1988 HIV screening HIV Screening [facility] Comprehensive metabo lic 2000 panel - Serum or Plasma [facility] Drugs of abuse panel - Urine by Screen method [facility] Lipid 1996 panel - S jennifer or Plasma [facility] Immunizations Immunization Date Immunization Notes Care Provider Fa cility 12-01-2022 Covid Moderna Bivale nt Booster; Translations: [Covid Moderna Bivalent Booster] Dr. Gina Paredes Work Phone: [facility] 02-03-2022 Covid Moderna Bivale nt Booster; Translations: [Covid Moderna Bivalent Booster] Dr. Gina Paredes Work Phone: [facility] 01-07-2021 Covid (Moderna) Dr. Gina Paredes Work Phone: [facility] 12-10-2020 Covid (Moderna) Dr. Gina Paredes Work Phone: [facility] Payers Date Payer Category Payer Self-pay [id number] 2020 [facility] BLUE CARD PPO OOS [id number] 2020 Unknown [id number] 2017 Unknown [id number] Unknown [id number] Unknown [id number] Unknown [id number] Unknown [id number] Unknown [id number] Unknown [id number] Unknown [id number] Social History Date Type Detail Facility Start: 10-18-2022 End: 10-24-2023 Tobacco smoking status WVIS Unknown if ever smoked [facility] Start: 1970 Sex Assigned At Female [facility] Start: 04-30-2024 End: 11-16-2024 Tobacco smoking status [facility]VIS Never smoked tobacco [facility] Start: 11-16-2024 Tobacco use and exposure Smokeless tobacco non-user [facility] Start: 11-16-2024 Alcoholic beverage intake Lifetime non-drinker (finding) [facility] Start: 11-16-2024 History of Social function [facility] Start: 11-16-2024 Tobacco use panel [facility] Adult Depression Screening Assessment 0 [facility] Start: 1970 Sex assigned at Not on file C [facility] Clinical Notes 11-11-2024 to 02-17-2025 Note Date & Type Note Facility 02-17-2025 Progress note [facility] 02-17-2025 Progress note Note Date/Time February 17, 2025 9:59am [facility] [address] [place] [address] [place] [address] OFFICE VISIT Date of Service: 02/17/25 MR#: [id number] Acct: [id number] Name: KEZIA MOTTA Rep #: [id number] : 1970 Provider: Dr. Helio Paredes, Age/Sex: 54/F Location: [facility] Status: Signed Intake Vital Signs 11/11/24 16:15 02/17/25 09:32 Height 5 ft 4 in 5 ft 4 in Weight: 262 lb 262 lb 2 oz BMI 44.9 44.9 BP 130/82 H 138/88 H Blood Pressure Location Lt brachial Lt brachial Position Sitting Sitting Respiration 18 16 Pulse 86 76 Pulse Source Monitor Monitor Temp 97.3 F L 97.4 F L Temp Source Temporal Temporal Pulse Oximetry (%) 98 94 Oxygen Delivery Method room air room air Intake Visit Reasons: 3 M FU Chief Complaint: fu Servicer Required: No Accompanied by: Self Is patient in pain?: No Allergies Iodinated Contrast Media Allergy (Severe, Verified 02/17/25 09:26) Rash trazodone Allergy (Severe, Verified 02/17/25 09:26) rash Medications ?Medication ?Instructions ?Recorded ?Confirmed ?Type oxybutynin chloride 5 mg tablet 5 mg PO BID #180 tabs 01/23/24 02/17/25 Rx rimegepant 75 mg disintegrating 75 mg PO .QD PRN migra ine headache 06/05/24 02/17/25 Rx tablet (Nurtec ODT) #14 tabs meloxicam 7.5 mg tablet 7.5 mg PO DAILY #90 TABLETS 07/03/24 02/17/25 Rx duloxetine 30 mg capsule,delayed 30 mg PO QHS #90 caps 07/10/24 02/17/25 Rx release duloxetine 60 mg capsule,delayed 60 mg PO QHS #90 caps 07/10/24 02/17/25 Rx release omeprazole 20 mg capsule,delayed 20 mg PO DAILY #90 ca ps 07/10/24 02/17/25 Rx release quetiapine 100 mg tablet See Rx Instructions PO BID # 270 01/13/25 01/13/25 Rx tabs dextroamphetamine-amphetamine ER 30 mg PO DAILY 30 day s #30 caps 01/27/25 02/17/25 Rx 30 mg 24hr capsule,extend release (Adderall XR) Have you fallen in the past year?: No PFSH Medical History Obesity Overactive bladder Chronic shoulder pain GERD (gastroesophageal reflux disease) ADHD Gallstones Anxiety and depression Surgical History History of bladder repair surgery History of mandibular surgery History of cholecystectomy Family History Other Alcoholism Breast cancer Diabetes Social History adopted: No household members: significant other current occupational status: employed current occupation: [employer] pets and animals: No sexually active: No Smoking Status: Never smoker alcohol intake: current alcohol intake frequency: holidays/special occasions only substance use type: does not use caffeine: Yes (6-10) Type: carbonated beverages what type of physical activity do you participate in: none do you feel safe at home: Yes HPI HPI Chief Complaint: fu Details: KEZIA MOTTA, is a 54 F who presents to the office today for her 3-month follow-up exam so she can remain in compliance for her ADHD medications. She is also due for some blood work at this visit. She has no complaints at this time. ROS Const Constitutional: No body ache, excessive sweating, fatigue, fever(s), frequent falls, headache(s), snoring, weakness, weight change, sleep problems or change in appetite Eyes Eyes: No blurry vision, change in vision, eye pain or Light sensitivity ENT ENT: No abnormal hearing, ear or mastoid pain, tinnitus, nasal congestion, headache(s), neck pain or sore throat Resp Respiratory: No cough, shortness of breath, snoring or wheezing Cardio Cardiology: No chest pain at rest, chest pain with exertion, excessive sweating,shortness of breath, dyspnea on exertion, lightheadedness, orthopnea or palpitations Gastro GI: No abdominal pain, change in bowel habits, constipation, cramping, diarrhea,nausea/dyspepsia or vomiting Genitourinary-Female: No burning urination, painful urination, urinary incontinence, urinary frequency, blood in urine, abnormal periods or pelvic pain Musc Musculoskeletal: No abnormal gait, joint pain, back pain, limited range of motion, neck pain, numbness, stiffness, tingling or Arthritis Skin Skin: No dry skin, redness, lesions, itchy eyes, rash or wounds Neuro Neurology: No abnormal gait, abnormal hearing, abnormal speech, dizziness, weakness, frequent falls, headache(s), memory loss, numbness or tingling Psych Psychiatric: No anxiety, No change in appetite, No depression, No memory loss and No Thoughts of harming yourself/Others Endo Endocrine: No cold intolerance, excessive sweating, fatigue, flushing, heat intolerance, increased thirst/drinking, increased hunger or weight change Aller/Imm Allergy/Immunologic: No itchy eyes, seasonal allergy symptoms, hives or wheezing Vasiliy/Lymp Hematologic/Lymphatic: No easy bleeding, easy bruising or enlarged lymph nodes Exam Const General: cooperative, healthy appearing, comfortable, no acute distress, well developed and well groomed Nutritional Appearance: obese Orientation: alert, awake and oriented x3 Limitations: mental status not altered Resp Effort & Inspection: normal respiratory effort, able to speak in complete sentences, symmetric chest movement, normal respiratory pattern and no audible wheezes Auscultation: Bilateral: Clear to Auscultation Cardio Rate: regular rate Rhythm: regular rhythm Heart Sounds: S1 normal, S2 normal and no murmurs Pulses: radial pulses present bilaterally 2+ Neuro General: patient alert, patient awake and patient oriented x3 Cognition: normal cognition Speech: abnormal speech Details: other (chronic speech impediment) Gait: normal gait Psych Appearance: grossly normal Mental Status: mental status grossly normal Mood: congruent mood Affect: normal affect and No anxious affect Attitude: cooperative Thought Process: normal Thought Content: no delusions and no hallucinations Coding Level of Care Code Off vis,est,level 3 Diagnoses ADHD, adult residual type F90.8 Assessment and Plan Assessment and Plan (1) ADHD, adult residual type: Status: Acute Plan: Patient is actively employed and is doing well at her work. She has a long-termboyfriend and is planning on taking a vacation with him. Her weights been stable and she voices no complaints. Orders: Orders Comprehensive Metabolic Profil Today R53.83 - Other fatigue Lipid Profile Today F90.8 - Attention-deficit hyperactivity disorder, other type 7 Drugs of Abuse+Alcohol, UR Today F90.8 - Attention-deficit hyperactivity disorder, other type Medications: Refilled quetiapine 1 tab PO in AM and 2 tabs PO QHS 270 tabs 1RF Plan Details Follow Up: 3 Months Clinical Quality Measures Falls Risk Screening/Assistive Devices Have you fallen in the past year?: No 02/17/25 0959 <Electronically signed by Gina truong DO> Date _ Gina Paredes DO Cosigner Signature: Date (if applicable) CC: ~ [facility] Work Phone: [phone] 457-349903-09-2025 NoteHNO ID: [id number] Author: BUDDY DOWNS MD Service: ? Author Type: Physician Type: Progress Notes Filed: 11/16/2024 12:15 Note Text: [facility] ANDREINA Motta is a 54 year old female. Patient presents with: Eye Problem: Eyes drainage, mucus in throat both x 6 days Patient with both flu shot and COVID shot this season. Non-smoker; Also complained of ear plugging as if she is under the water. The history is provided by the patient. Eye Problem This is a new problem. The current episode started in the past 7 days. The problem has been gradually worsening. Associated symptoms include chills, coughing, a fever and a sore throat. Pertinent negatives include no nausea or neck pain. Treatments tried: Mucinex DM. The treatment provided no relief. Review of Systems Constitutional: Positive for chills and fever. HENT: Positive for sore throat. Respiratory: Positive for cough. Gastrointestinal: Negative for nausea. Musculoskeletal: Negative for neck pain. Objective BP 119/79 Pulse 110 Temp 36.3 ?C (97.4 ?F) Resp 20 Wt 119.7 kg (264 lb) SpO2 96% Physical Exam Constitutional: Appearance: Normal appearance. HENT: Head: Normocephalic and atraumatic. Nose: Nose normal. Mouth/Throat: Mouth: Mucous membranes are moist. Pharynx: No oropharyngeal exudate or posterior oropharyngeal erythema. Cardiovascular: Rate and Rhythm: Normal rate and regular rhythm. Pulmonary: Effort: Pulmonary effort is normal. Breath sounds: Rhonchi (Left upper to mid lung field) present. Neurological: Mental Status: She is alert. ASSESSMENT/PLAN: 1. Atypical pneumonia - ICD9: 486, ICD10: J18.9 Follow-up with PCP Increase fluid intake, rest Steam inhalation plus physiotherapy Auto-insufflation for eustachian tube dysfunction ED if worse - DOXYCYCLINE MONOHYDRATE 100 MG CAPSULE Buddy Downs MD Differential Diagnoses - atypical pneumonia is more likely for the following reason(s): suggested by HANDP Disposition The patient was discharged. [facility]03-09-2025 History of Present illness Narrative* Buddy Downs MD - 11/16/2024 12:11 PM EDT [facility] [place] Subjective Kezia Motta is a 54 year old female. Patient presents with: Eye Problem: Eyes drainage, mucus in throat both x 6 days Patient with both flu shot and COVID shot this season. Non-smoker; Also complained of ear plugging as if she is under the water. The history is provided by the patient. Eye Problem This is a new problem. The current episode started in the past 7 days. The problem has been gradually worsening. Associated symptoms include chills, coughing, a fever and a sore throat. Pertinent negatives include no nausea or neck pain. Treatments tried: Mucinex DM. The treatment provided no relief. Review of Systems Constitutional: Positive for chills and fever. HENT: Positive for sore throat. Respiratory: Positive for cough. Gastrointestinal: Negative for nausea. Musculoskeletal: Negative for neck pain. Objective BP 119/79 Pulse 110 Temp 36.3 C (97.4 F) Resp 20 Wt 119.7 kg (264 lb) SpO2 96% Physical Exam Constitutional: Appearance: Normal appearance. HENT: Head: Normocephalic and atraumatic. Nose: Nose normal. Mouth/Throat: Mouth: Mucous membranes are moist. Pharynx: No oropharyngeal exudate or posterior oropharyngeal erythema. Cardiovascular: Rate and Rhythm: Normal rate and regular rhythm. Pulmonary: Effort: Pulmonary effort is normal. Breath sounds: Rhonchi (Left upper to mid lung field) present. Neurological: Mental Status: She is alert. ASSESSMENT/PLAN: 1. Atypical pneumonia - ICD9: 486, ICD10: J18.9 Follow-up with PCP Increase fluid intake, rest Steam inhalation plus physiotherapy Auto-insufflation for eustachian tube dysfunction ED if worse - DOXYCYCLINE MONOHYDRATE 100 MG CAPSULE Buddy Downs MD Differential Diagnoses - atypical pneumonia is more likely for the following reason(s): suggested by H&P Disposition The patient was discharged. [facility] [place] Instructions* Patient Instructions* Buddy Downs MD - 11/16/2024 11:24 AM EDT Follow-up with PCP Increase fluid intake, rest Steam inhalation plus physiotherapy Autoinsufflation ED if worse [facility] [place] Evaluation note* Diagnosis Onset Date Resolution Status Admit Date ADHD, adult residual type acute November 11, 2024 4:06pm Anxiety and depression chronic [facility] 2024 4:06pm Overactive bladder chronic November 11, 2024 4:06pm ADHD, adult residual type acute February 17, 2025 9:01am [facility] Work Phone: Evaluation note* Diagnosis Onset Date Resolution Status ADHD, adult residual type [place] Encounter for removal of sutures acute GERD (gastroesophageal reflux disease) chronic ADHD, adult residual type [place] Hearing loss acute Preventative health care acu te Obesity chronic [facility] Work Phone: Evaluation note* Diagnosis Onset Date Resolution Status ADHD, adult residual type [place] Optic nerve compression acut e [facility] Work Phone: Evaluation note* Diagnosis Onset Date Resolution Status ADHD, adult residual type [place] Constipation by delayed colonic transit acute Persistent headaches acute Anxiety and depression chron ic ADHD, adult residual type [place] Fatigue acute Anxiety and depression chron ic [facility] Work Phone: Evaluation note* Diagnosis Atypical pneumonia- Primary Pneumonia, organism unspecified documented in this encounter [facility] for referral (narrative)No reason for referral information [facility]He[facility] Work Phone: Summary Purpose Family History Relationship Condition Age at Onset Recorded Date/T harmony Not Specified Diabetes mellitus Unknown Alcoholism Unknown Malignant neoplasm of breast Unknown Advance Directives Advance Directive Response Recorded Date/ Time Living Will No November 03 11:35am Power of Light Bulb Replacer No November 03, 2020 11:35am Advance Directive Response Recorded Date/ Time Living Will No November 03 12:35pm Power of Light Bulb Replacer No November 03, 2020 12:35pm Chief Complaint and Reason for Visit Chief Complaint 4 M FU, PT DAY 8 OUT OF COVID ANNUAL PHYSICAL Reason for Visit ADHD, adult residual type Encounter for removal of sutures GERD (gastroesophageal reflux disease) ADHD, adult residual type Hearing loss Preventative health care Obesity Chief Complaint 3 M FU Other disorders of optic nerve Reason for Visit ADHD, adult residual type Optic nerve compression Chief Complaint 6 M FU 3 M FU Reason for Visit ADHD, adult residual type Constipation by delayed colonic transit Persistent headaches Anxiety and depression ADHD, adult residual type Fatigue Anxiety and depression Chief Complaint Admit Date 3 M FU November 11, 2024 4:06 pm Amb Documentation January 12, 2025 3:46pm Amb Documentation January 13, 2025 1:32pm 3 M FU February 17, 2025 9:01 am Reason for Visit Admit Date ADHD, adult residual type November 11 4:06pm Anxiety and depression November 11, 2024 4 :06pm Overactive bladder November 11, 2024 4:06 pm ADHD, adult residual type February 17 9:01am Additional Source Comments INFORMATION SOURCE (unrecogn ized section and content) DATE CREATED AUTHOR 02/27/2018 [facility] [place] DATE CREATED AUTHOR AUTHOR'S ORGANIZ ATION 04/21/2020 [facility] ([place] DATE CREATED AUTHOR AUTHOR'S ORGANIZ ATION 11/17/2024 [facility] DATE CREATED AUTHOR AUTHOR'S ORGANIZ ATION 01/15/2025 [facility] Care Teams (unrecognized sec tion and content) Team Status: Active Member Role Status Dates Dr. Gina Paredes DO Primary Care Provider Active Team Status: Inactive Member Role Status Dates Dr. Gina Paredes DO Primary Care Pr ovider, Attending Provider, Referring Provider Active Team Status: Inactive Member Role Status Dates Dr. Gina Paredes DO Primary Care Provider Active Dr. Alexandro Paredes DO Attending Provider Active Team Status: Inactive Member Role Status Dates Dr. Gina Paredes DO Primary Care Provider, Attend ing Provider Active [employer] Relationship Specialty Start Date End Date Gina Paredes DO [address] [place] [address] PCP - General Family Medicine 11/16/24 Team Status: Inactive Member Role Status Dates Dr. Gina Paredes DO Primary Care Provider Active Start: November 11, 2024 End: November 11, 2024 Dr. Gina Paredes DO Attending Provider Active Start: November 11, 2024 End: November 11, 2024 Dr. Gina Paredes DO Referring Provider Active Start: November 11, 2024 End: November 11, 2024 Team Status: Active Member Role Status Dates Dr. Gina Paredes DO Primary Care Provider Active Start: January 12, 2025 Reyna Michel MA Attending Provider Acti ve Start: January 12, 2025 Team Status: Active Member Role Status Dates Dr. Gina Paredes DO Primary Care Provider Active Start: January 13, 2025 Reyna Michel MA Attending Provider Acti ve Start: January 13, 2025 Team Status: Inactive Member Role Status Dates Dr. Gina Paredes DO Primary Care Provider Active Start: February 17, 2025 End: February 17, 2025 Dr. Gina Paredes DO Attending Provider Active Start: February 17, 2025 End: February 17, 2025 Dr. Gina Paredes , DO Referring Provider Active Start: February 17, 2025 End: February 17, 2025 Goals (unrecognized section and content) Goals may be documented in a n alternate sectionGoals may be documented in an alternate sectionGoals may be documented in an alternate sectionGoals may be documented in an alternate section Source Comments (unrecognize d section and content) In the event this informatio n is protected by the Federal Confidentiality of Alcohol and Drug Abuse Patient Records regulations: The Federal rules restrict any use of the information to criminally investigate or prosecute any alcohol or drug abuse patient.[facility] Reason for Visit (unrecogniz ed section and content) Reason Comments Eye Problem Eyes drainage, mucus in throat both x 6 days FOR RECORDS PERTAINING TO PATIENTS WHO ARE OR HAVE BEEN ENROLLED IN A CHEMICAL DEPENDENCY/SUBSTANCEABUSE PROGRAM, SOME INFORMATION MAY BE OMITTED. This clinical summary was aggregated from multiple sources. Caution should be exercised in using it in the provision of clinical care. This summary normalizes information from multiple sources, and as a consequence, information in this document may materially change the coding, format and clinical context of patient data. In addition, data may be omitted in some cases. CLINICAL DECISIONS SHOULD BE BASED ON THE PRIMARY CLINICAL RECORDS. [employer] [facility]. provides no warranty or guarantee of the accuracy or completeness of information in this document.
== END | disposition home or self-care (01) ==
LOC: BIMLAB 10:02
PROVIDERS: PCP Family Medicine; Referring Provider Family Medicine; Visit Provider Family Medicine
DX: F90.8 Attention-deficit hyperactivity disorder, other type (principal); R53.83 Other fatigue
CPT/HCPCS: 36415; 80053; 80061; 80307